=== PATIENT | female | born 1935 | race Hispanic/Latino ===

== ENCOUNTER 2021-03-13 17:04 | Inpatient (IN) | payer OTHER ==
[~2021-03-13] VITALS: Ht 152.4 cm; Wt 57.2 kg
[2021-03-13 19:08] LABS: BASOPHILS # (AUTO) 0.1 (0.0-0.1); BASOPHILS % 0.8 % (0.0-1.0); EOSINOPHILS # (AUTO) 0.3 (0.0-0.4); EOSINOPHILS % 3.4 % (0.0-6.0); LYMPHOCYTES % 13.5 % (18.0-39.1); MEAN CORPUSCULAR HGB CONC 28.1 g/dL (31-35); MEAN CORPUSCULAR VOLUME 85.2 fL (81-99); MONOCYTES % 13.9 % (4.4-11.3); NEUTROPHILS % 67.2 % (38.7-80.0); PLATELET COUNT 262 x10e3/uL (140-360); RED BLOOD COUNT 2.63 x10e6/uL (3.6-5.1); RED CELL DISTRIBUTION WIDTH 21.6 % (11.7-14.4)
[2021-03-13 19:15] LABS: HEMATOCRIT 22.4 % (34.2-44.1); HEMOGLOBIN 6.3 g/dL (12.0-16.0)
[2021-03-13 19:25] LABS: PARTIAL THROMBOPLASTIN TIME 42.6 seconds (23.8-35.5)
[2021-03-13 19:27] LABS: ALBUMIN 3.5 g/dL (3.5-5.0); ALBUMIN/GLOBULIN RATIO 1.2 (0.8-2.0); ANION GAP 16.5 mmol/L (8-16); CALCIUM 7.9 mg/dL (8.4-10.2); CREATININE, SERUM 1.74 mg/dL (0.57-1.11); INR 5.32; PROTHROMBIN TIME 49.4 seconds (11.9-14.5)
[2021-03-13 19:28] LABS: CREATINE KINASE MB 3.9 ng/mL (0-5.0)
[2021-03-13 19:33] LABS: POTASSIUM 5.5 mmol/L (3.5-5.1)
[2021-03-13] MEDS ORDERED: SODIUM CHLORIDE 0.9% 250ML 250 ML IV ONE (20:45)
[2021-03-13] MEDS ORDERED: PHYTONADIONE 10 MG/ML AMP SQ ONE (20:45)
[2021-03-13] MEDS ORDERED: ONDANSETRON HCL INJ 2MG/ML 2ML 2 MG/ML VIAL IV PRN (21:45)
[2021-03-13] MEDS ORDERED: SODIUM CHLORIDE FLUSH 10 ML SYR INJ PRN (21:45)
[2021-03-13 22:07] LABS: CLARITY,URINE CLEAR (CLEAR); COLOR,URINE YELLOW (YELLOW); KETONES,URINE NEGATIVE (NEGATIVE); LEUKOCYTE ESTERASE ,URINE MODERATE (NEGATIVE); NITRITE,URINE NEGATIVE (NEGATIVE); PROTEIN,URINE DIPSTICK 1+ (NEGATIVE); URINE UROBILINOGEN 0.2 mg/dL (0.2 - 1)
[2021-03-13 22:14] LABS: BACTERIA,URINE FEW /HPF; EPITHELIAL CELLS,URINE MODERATE /LPF; WBC,URINE (MAN) 21-50 /HPF (0-5)
[2021-03-13] MEDS: FUROSEMIDE INJ 10 MG/ML 2 ML VIAL IV SCH (22:44)
[2021-03-13 23:16] VITALS: BP 149/64
[2021-03-13] MEDS ORDERED: SODIUM CHLORIDE 0.9% 250ML 250 ML ONE (23:48)
[2021-03-14] VITALS (8 sets, daily range): BP systolic 149–195; BP diastolic 64–94
[2021-03-14] MEDS: FUROSEMIDE INJ 10 MG/ML 2 ML VIAL IV SCH (01:34)
[2021-03-14] MEDS ORDERED: FUROSEMIDE40 MG PO (04:57)
[2021-03-14] MEDS ORDERED: METOPROLOL SUCC50 MG PO (04:57)
[2021-03-14] MEDS ORDERED: POTASSIUM CHLO20 ME1 PO (04:57)
[2021-03-14] MEDS ORDERED: HYDRALAZINE HCL25 MG PO (04:57)
[2021-03-14] MEDS ORDERED: LOSARTAN POTAS100 MG PO (04:57)
[2021-03-14] MEDS ORDERED: ATORVASTATIN CA20 MG PO (04:57)
[2021-03-14] MEDS ORDERED: WARFARIN SODIUM2 MG PO (04:57)
[2021-03-14] MEDS ORDERED: ALENDRONATE SOD70 MG PO (04:57)
[2021-03-14] MEDS ORDERED: TYLENOL325 M2 PO (04:57)
[2021-03-14] MEDS ORDERED: NAC600 MG PO (06:24)
[2021-03-14] MEDS ORDERED: ADVAIR IH (06:24)
[2021-03-14] MEDS: FUROSEMIDE INJ 10 MG/ML 2 ML VIAL IV PRN ×2 (06:38→18:00)
[2021-03-14] MEDS ORDERED: BENZONATATE 100 MG CAP PO PRN (08:45)
[2021-03-14] MEDS ORDERED: METOPROLOL SUCCINATE 50 MG TAB XL PO ONE (08:45)
[2021-03-14] MEDS: ALBUTEROL/IPRATROPIUM 3 ML NEB NEB SCH ×3 (08:45→19:50)
[2021-03-14] MEDS ORDERED: ALBUTEROL/IPRATROPIUM 3 ML NEB NEB PRN (08:45)
[2021-03-14] MEDS ORDERED: METHYLPREDNISOLONE SOD SUCC 40 MG/ML VIAL 1ML IV SCH (09:00)
[2021-03-14] MEDS: CEFTRIAXONE 1 GM in SODIUM CHLORIDE 0.9% 50ML 50 ML IV SCH (09:59)
[2021-03-14] MEDS: BENZONATATE 100 MG CAP PO SCH ×3 (09:59→20:37)
[2021-03-14] MEDS ORDERED: SODIUM CHLORIDE 0.9% 250ML 250 ML ONE (14:00)
[2021-03-14] MEDS: HYDRALAZINE HCL 25 MG TAB PO SCH (14:18)
[2021-03-14] MEDS: METOPROLOL SUCCINATE 50 MG TAB XL PO SCH (17:30)
[2021-03-14 18:40] LABS: BASOPHILS % 0.2 % (0.0-1.0); HEMATOCRIT 28.8 % (34.2-44.1); HEMOGLOBIN 9.1 g/dL (12.0-16.0); LYMPHOCYTES # (AUTO) 0.2 (1.0-3.2); LYMPHOCYTES % 2.3 % (18.0-39.1); MEAN CORPUSCULAR HEMOGLOBIN 26.4 pg (28-32); MEAN CORPUSCULAR HGB CONC 31.6 g/dL (31-35); MEAN CORPUSCULAR VOLUME 83.5 fL (81-99); MONOCYTES % 0.4 % (4.4-11.3); NEUTROPHILS # (AUTO) 9.1 (2.1-6.9); NEUTROPHILS % 95.8 % (38.7-80.0); PLATELET COUNT 234 x10e3/uL (140-360); RED BLOOD COUNT 3.45 x10e6/uL (3.6-5.1); RED CELL DISTRIBUTION WIDTH 19.1 % (11.7-14.4)
[2021-03-14 19:03] LABS: INR 1.28; PROTHROMBIN TIME 16.7 seconds (11.9-14.5)
[2021-03-14 19:04] LABS: PARTIAL THROMBOPLASTIN TIME 28.3 seconds (23.8-35.5)
[2021-03-14 19:15] LABS: ALBUMIN 3.8 g/dL (3.5-5.0); ALBUMIN/GLOBULIN RATIO 1.2 (0.8-2.0); ANION GAP 19.3 mmol/L (8-16); CREATININE, SERUM 1.59 mg/dL (0.57-1.11)
[2021-03-14 19:18] LABS: POTASSIUM 4.3 mmol/L (3.5-5.1)
[2021-03-14 19:35] LABS: FERRITIN 39.88 ng/mL (4.63-204.00)
[2021-03-15] VITALS (8 sets, daily range): BP systolic 132–149; BP diastolic 49–102
[2021-03-15] MEDS: ALBUTEROL/IPRATROPIUM 3 ML NEB NEB SCH ×4 (01:00→19:40)
[2021-03-15 05:37] LABS: BASOPHILS % 0.1 % (0.0-1.0); HEMATOCRIT 28.4 % (34.2-44.1); HEMOGLOBIN 8.8 g/dL (12.0-16.0); LYMPHOCYTES # (AUTO) 0.5 (1.0-3.2); LYMPHOCYTES % 5.8 % (18.0-39.1); MONOCYTES # (AUTO) 0.9 (0.2-0.8); MONOCYTES % 9.2 % (4.4-11.3); NEUTROPHILS # (AUTO) 7.9 (2.1-6.9); NEUTROPHILS % 84.3 % (38.7-80.0); PLATELET COUNT 224 x10e3/uL (140-360); RED BLOOD COUNT 3.38 x10e6/uL (3.6-5.1); RED CELL DISTRIBUTION WIDTH 19.6 % (11.7-14.4)
[2021-03-15 06:14] LABS: INR 1.17; PROTHROMBIN TIME 15.6 seconds (11.9-14.5)
[2021-03-15 06:21] LABS: ANION GAP 20.2 mmol/L (8-16); CALCIUM 7.9 mg/dL (8.4-10.2); CREATININE, SERUM 1.42 mg/dL (0.57-1.11); POTASSIUM 4.2 mmol/L (3.5-5.1)
[2021-03-15] MEDS: BENZONATATE 100 MG CAP PO SCH ×3 (09:00→21:30)
[2021-03-15] MEDS: CYANOCOBALAMIN INJ 1,000 MCG/ML VIAL IM SCH (10:00)
[2021-03-15] MEDS: METHYLPREDNISOLONE SOD SUCC 40 MG/ML VIAL 1ML IV SCH (10:00)
[2021-03-15] MEDS: CEFTRIAXONE 1 GM in SODIUM CHLORIDE 0.9% 50ML 50 ML IV SCH (10:00)
[2021-03-15] MEDS: METOPROLOL SUCCINATE 50 MG TAB XL PO SCH ×2 (10:00→17:31)
[2021-03-15] MEDS ORDERED: PEG (High)/E-LYTE SOLN 4,000 ML BTL PO ONE (10:00)
[2021-03-15] MEDS: ATORVASTATIN 20 MG TAB PO SCH (10:00)
[2021-03-15] MEDS: HYDRALAZINE HCL 25 MG TAB PO SCH ×2 (10:00→17:30)
[2021-03-15] MEDS: IRON SUCROSE 100 MG in SODIUM CHLORIDE 0.9% 100 ML 100 ML IV SCH (11:00)
[2021-03-16] VITALS (7 sets, daily range): BP systolic 120–159; BP diastolic 74–90
[2021-03-16] MEDS: ALBUTEROL/IPRATROPIUM 3 ML NEB NEB SCH ×4 (01:15→21:05)
[2021-03-16] MEDS ORDERED: CITRATE OF MAGNESIA 300ML BOTTLE PO ONE (05:00)
[2021-03-16] MEDS: CYANOCOBALAMIN INJ 1,000 MCG/ML VIAL IM SCH (09:16)
[2021-03-16] MEDS: CEFTRIAXONE 1 GM in SODIUM CHLORIDE 0.9% 50ML 50 ML IV SCH (09:16)
[2021-03-16] MEDS: METHYLPREDNISOLONE SOD SUCC 40 MG/ML VIAL 1ML IV SCH (09:16)
[2021-03-16] MEDS: ATORVASTATIN 20 MG TAB PO SCH (09:17)
[2021-03-16] MEDS: METOPROLOL SUCCINATE 50 MG TAB XL PO SCH ×2 (09:17→17:56)
[2021-03-16] MEDS: BENZONATATE 100 MG CAP PO SCH ×3 (09:17→20:17)
[2021-03-16] MEDS: HYDRALAZINE HCL 25 MG TAB PO SCH ×2 (09:17→17:56)
[2021-03-16] MEDS: IRON SUCROSE 100 MG in SODIUM CHLORIDE 0.9% 100 ML 100 ML IV SCH (11:02)
[2021-03-16] MEDS ORDERED: LIDOCAINE HCL 2% LOCAL INJ 5 ML SDV VIAL INJ ONE (12:54)
[2021-03-16] MEDS ORDERED: PROPOFOL IV EMULSION 10 MG/ML 20 ML VIAL ONE (12:54)
[2021-03-16] MEDS ORDERED: MIDAZOLAM HCL 2 MG/2 ML VIAL ONE (13:21)
[2021-03-16] MEDS ORDERED: HYOSCYAMINE SULFATE 0.5 MG/ML INJ ONE (14:29)
[2021-03-17] VITALS (10 sets, daily range): BP systolic 97–178; BP diastolic 66–100
[2021-03-17] MEDS: ALBUTEROL/IPRATROPIUM 3 ML NEB NEB SCH ×4 (02:53→19:25)
[2021-03-17] MEDS: CYANOCOBALAMIN INJ 1,000 MCG/ML VIAL IM SCH (09:41)
[2021-03-17] MEDS: CEFTRIAXONE 1 GM in SODIUM CHLORIDE 0.9% 50ML 50 ML IV SCH (09:41)
[2021-03-17] MEDS: METHYLPREDNISOLONE SOD SUCC 40 MG/ML VIAL 1ML IV SCH (09:41)
[2021-03-17] MEDS: BENZONATATE 100 MG CAP PO SCH ×3 (09:42→20:56)
[2021-03-17] MEDS: ATORVASTATIN 20 MG TAB PO SCH (09:42)
[2021-03-17] MEDS: METOPROLOL SUCCINATE 50 MG TAB XL PO SCH ×2 (09:42→17:11)
[2021-03-17] MEDS: HYDRALAZINE HCL 25 MG TAB PO SCH ×2 (09:42→17:11)
[2021-03-17] MEDS ORDERED: SODIUM CHLORIDE 0.9% 50ML 50 ML ONE (10:23)
[2021-03-17] MEDS: IRON SUCROSE 100 MG in SODIUM CHLORIDE 0.9% 100 ML 100 ML IV SCH (10:53)
[2021-03-17] MEDS: APIXAB 2.5 MG TABLET PO SCH (17:11)
[2021-03-18] VITALS (9 sets, daily range): BP systolic 117–189; BP diastolic 63–122
[2021-03-18] MEDS: ALBUTEROL/IPRATROPIUM 3 ML NEB NEB SCH ×3 (01:00→19:57)
[2021-03-18] MEDS ORDERED: PANTOPRAZOLE SODIUM 40 MG SUSPDR.PKT PO SCH (07:30)
[2021-03-18] MEDS: METHYLPREDNISOLONE SOD SUCC 40 MG/ML VIAL 1ML IV SCH (07:30)
[2021-03-18] MEDS: HYDRALAZINE HCL 25 MG TAB PO SCH ×2 (09:00→17:00)
[2021-03-18] MEDS: METOPROLOL SUCCINATE 50 MG TAB XL PO SCH ×2 (09:00→17:00)
[2021-03-18] MEDS: APIXAB 2.5 MG TABLET PO SCH ×2 (09:00→17:00)
[2021-03-18] MEDS: ATORVASTATIN 20 MG TAB PO SCH (09:00)
[2021-03-18] MEDS: CEFTRIAXONE 1 GM in SODIUM CHLORIDE 0.9% 50ML 50 ML IV SCH (09:00)
[2021-03-18] MEDS: BENZONATATE 100 MG CAP PO SCH ×3 (09:00→21:28)
[2021-03-18] MEDS: HYDRALAZINE HCL 20 MG/ML VIAL IV PRN (09:52)
[2021-03-18 09:56] LABS: BASOPHILS % 0.1 % (0.0-1.0); HEMATOCRIT 28.8 % (34.2-44.1); HEMOGLOBIN 8.8 g/dL (12.0-16.0); LYMPHOCYTES # (AUTO) 0.7 (1.0-3.2); LYMPHOCYTES % 4.8 % (18.0-39.1); MEAN CORPUSCULAR HEMOGLOBIN 26.4 pg (28-32); MEAN CORPUSCULAR HGB CONC 30.6 g/dL (31-35); MEAN CORPUSCULAR VOLUME 86.5 fL (81-99); MONOCYTES # (AUTO) 1.6 (0.2-0.8); MONOCYTES % 10.8 % (4.4-11.3); NEUTROPHILS # (AUTO) 11.4 (2.1-6.9); NEUTROPHILS % 79.2 % (38.7-80.0); PLATELET COUNT 288 x10e3/uL (140-360); RED BLOOD COUNT 3.33 x10e6/uL (3.6-5.1); RED CELL DISTRIBUTION WIDTH 21.8 % (11.7-14.4)
[2021-03-18 10:00] LABS: ANION GAP 14.7 mmol/L (8-16); CALCIUM 7.6 mg/dL (8.4-10.2); CREATININE, SERUM 1.22 mg/dL (0.57-1.11); POTASSIUM 3.7 mmol/L (3.5-5.1)
[2021-03-18] MEDS: IRON SUCROSE 100 MG in SODIUM CHLORIDE 0.9% 100 ML 100 ML IV SCH (10:00)
[2021-03-19 00:37] VITALS: BP 159/83
[2021-03-19] MEDS: ALBUTEROL/IPRATROPIUM 3 ML NEB NEB SCH ×3 (01:00→13:27)
[2021-03-19] MEDS: HYDRALAZINE HCL 20 MG/ML VIAL IV PRN (04:23)
[2021-03-19 04:32] VITALS: BP 168/99
[2021-03-19 04:54] LABS: BASOPHILS % 0.2 % (0.0-1.0); EOSINOPHILS % 0.1 % (0.0-6.0); HEMATOCRIT 29.1 % (34.2-44.1); HEMOGLOBIN 8.8 g/dL (12.0-16.0); LYMPHOCYTES # (AUTO) 0.6 (1.0-3.2); LYMPHOCYTES % 4.4 % (18.0-39.1); MEAN CORPUSCULAR HEMOGLOBIN 26.7 pg (28-32); MEAN CORPUSCULAR HGB CONC 30.2 g/dL (31-35); MEAN CORPUSCULAR VOLUME 88.2 fL (81-99); MONOCYTES # (AUTO) 1.3 (0.2-0.8); MONOCYTES % 9.3 % (4.4-11.3); NEUTROPHILS # (AUTO) 11.2 (2.1-6.9); NEUTROPHILS % 80.6 % (38.7-80.0); PLATELET COUNT 288 x10e3/uL (140-360); RED CELL DISTRIBUTION WIDTH 22.4 % (11.7-14.4)
[2021-03-19 05:22] LABS: ANION GAP 13.9 mmol/L (8-16); CALCIUM 7.8 mg/dL (8.4-10.2); CREATININE, SERUM 1.49 mg/dL (0.57-1.11); POTASSIUM 4.9 mmol/L (3.5-5.1)
[2021-03-19 06:22] LABS: ANISOCYTOSIS MODERATE; LYMPHOCYTES % (MANUAL) 3 % (19-48); MONOCYTES % (MANUAL) 6 % (3.4-9.0); NEUTROPHILS % (MANUAL) 91 % (40-74); NUCLEATED RED BLOOD CELLS 1; PLATELET ESTIMATE ADEQUATE; PLATELET MORPHOLOGY COMMENT NORMAL
[2021-03-19 06:23] LABS: POLYCHROMASIA FEW
[2021-03-19 06:24] LABS: OVALOCYTES FEW
[2021-03-19 06:25] LABS: ELLIPTOCYTE, RBC SLIGHT
[2021-03-19 06:26] LABS: RBC MORPHOLOGY COMMENT ABNORMAL
[2021-03-19] MEDS ORDERED: PANTOPRAZOLE SOD 40 MG TABEC PO SCH (07:30)
[2021-03-19] MEDS: METHYLPREDNISOLONE SOD SUCC 40 MG/ML VIAL 1ML IV SCH (07:57)
[2021-03-19 08:26] VITALS: BP 152/94
[2021-03-19] MEDS: BENZONATATE 100 MG CAP PO SCH (09:22)
[2021-03-19] MEDS: ATORVASTATIN 20 MG TAB PO SCH (09:22)
[2021-03-19] MEDS: CEFTRIAXONE 1 GM in SODIUM CHLORIDE 0.9% 50ML 50 ML IV SCH (09:22)
[2021-03-19] MEDS: APIXAB 2.5 MG TABLET PO SCH (09:22)
[2021-03-19] MEDS: HYDRALAZINE HCL 25 MG TAB PO SCH (09:23)
[2021-03-19] MEDS: METOPROLOL SUCCINATE 50 MG TAB XL PO SCH (09:23)
[2021-03-19] MEDS ORDERED: ELIQUIS2.5 MG PO (09:57)
[2021-03-19] MEDS ORDERED: TESSALON PERLE100 MG PO (09:58)
[2021-03-19] MEDS ORDERED: CARAFATE1 GM PO (09:59)
[2021-03-19] MEDS ORDERED: POTASSIUM CHLO10 ME1 PO (10:00)
[2021-03-19] MEDS ORDERED: OMEPRAZOLE40 MG PO (10:00)
[2021-03-19] MEDS ORDERED: ONDANSETRON HCL 4 MG ORAL DISINTEGRATING TAB PO PRN (10:15)
[2021-03-19 11:33] VITALS: BP 164/82
== END 2021-03-19 16:15 | disposition home or self-care (01) | DRG 377 ==
LOC: ER 17:40 → ERHOLD 21:40 → MED/SURG 23:10 → MED/SURG2 03-14 11:44
PROVIDERS: ADMIT Internal Medicine; ATTEND Internal Medicine
PROC: 30233K1 Transfusion of Nonautologous Frozen Plasma into Peripheral Vein, Percutaneous Approach (ICD-10-PCS; 2021-03-13)
PROC: 30233N1 Transfusion of Nonautologous Red Blood Cells into Peripheral Vein, Percutaneous Approach (ICD-10-PCS; 2021-03-14)
PROC: 0DB78ZX Excision of Stomach, Pylorus, Via Natural or Artificial Opening Endoscopic, Diagnostic (ICD-10-PCS; principal; 2021-03-16 15:00)
PROC: 0DJD8ZZ Inspection of Lower Intestinal Tract, Via Natural or Artificial Opening Endoscopic (ICD-10-PCS; 2021-03-16 15:00)
DX: K57.91 Diverticulosis of intestine, part unspecified, without perforation or abscess with bleeding (principal); K20.91 Esophagitis, unspecified with bleeding; N17.9 Acute kidney failure, unspecified; D62 Acute posthemorrhagic anemia; J84.9 Interstitial pulmonary disease, unspecified; J44.1 Chronic obstructive pulmonary disease with (acute) exacerbation; D68.32 Hemorrhagic disorder due to extrinsic circulating anticoagulants; I13.0 Hypertensive heart and chronic kidney disease with heart failure and stage 1 through stage 4 chronic kidney disease, or unspecified chronic kidney disease; T45.515A Adverse effect of anticoagulants, initial encounter; Z99.81 Dependence on supplemental oxygen; K44.9 Diaphragmatic hernia without obstruction or gangrene; K29.70 Gastritis, unspecified, without bleeding; K20.90 Esophagitis, unspecified without bleeding; J98.4 Other disorders of lung; E86.0 Dehydration; E87.5 Hyperkalemia; R09.02 Hypoxemia; I50.9 Heart failure, unspecified; N18.9 Chronic kidney disease, unspecified
CPT/HCPCS: 36415; 43239; 45378; 71045; 71250; 74176; 80048; 80053; 81001; 82103; 82270; 82550; 82553; 82607; 82728; 82746; 83540; 84466; 84484; 85025; 85045; 85610; 85730; 86200; 86431; 86850; 86900; 86920; 88305; 88312; 93005; 94640; 99285; J0360; J0696; J1756; J1940; J1980; J2001; J2250; J2920; J3420; J3430; J7050; P9016; P9017; U0002

== ENCOUNTER 2021-05-29 18:56 | Inpatient (IN) | payer OTHER ==
[~2021-05-29] VITALS: Ht 152.4 cm; Wt 57.2 kg
[~2021-05-29 18:56] MED LIST: ADVAIR IH; ALENDRONATE SOD70 MG PO; ATORVASTATIN CA20 MG PO; CARAFATE1 GM PO; ELIQUIS2.5 MG PO; FUROSEMIDE40 MG PO; HYDRALAZINE HCL25 MG PO; LOSARTAN POTAS100 MG PO; METOPROLOL SUCC50 MG PO; NAC600 MG PO; OMEPRAZOLE40 MG PO; POTASSIUM CHLO10 ME1 PO; POTASSIUM CHLO20 ME1 PO; TESSALON PERLE100 MG PO; TYLENOL325 M2 PO; WARFARIN SODIUM2 MG PO
[2021-05-29 20:09] LABS: BASOPHILS % 0.1 % (0.0-1.0); EOSINOPHILS # (AUTO) 0.2 (0.0-0.4); EOSINOPHILS % 1.1 % (0.0-6.0); HEMATOCRIT 34.7 % (34.2-44.1); HEMOGLOBIN 10.3 g/dL (12.0-16.0); LYMPHOCYTES # (AUTO) 0.6 (1.0-3.2); MEAN CORPUSCULAR HGB CONC 29.7 g/dL (31-35); MEAN CORPUSCULAR VOLUME 91.1 fL (81-99); MONOCYTES # (AUTO) 1.4 (0.2-0.8); MONOCYTES % 9.7 % (4.4-11.3); NEUTROPHILS # (AUTO) 11.9 (2.1-6.9); NEUTROPHILS % 84.5 % (38.7-80.0); PLATELET COUNT 255 x10e3/uL (140-360); RED BLOOD COUNT 3.81 x10e6/uL (3.6-5.1); RED CELL DISTRIBUTION WIDTH 17.9 % (11.7-14.4)
[2021-05-29 20:19] LABS: INR 1.35; PROTHROMBIN TIME 16.9 seconds (11.9-14.5)
[2021-05-29 20:20] LABS: PARTIAL THROMBOPLASTIN TIME 35.4 seconds (23.8-35.5)
[2021-05-29 20:29] LABS: ALBUMIN 3.3 g/dL (3.5-5.0); ALBUMIN/GLOBULIN RATIO 1.1 (0.8-2.0); ANION GAP 16.2 mmol/L (8-16); CALCIUM 8.7 mg/dL (8.4-10.2); CREATININE, SERUM 1.27 mg/dL (0.57-1.11); POTASSIUM 4.2 mmol/L (3.5-5.1)
[2021-05-29] MEDS ORDERED: SODIUM CHLORIDE FLUSH 10 ML SYR INJ PRN (22:00)
[2021-05-29] MEDS ORDERED: ALBUTEROL SULF 0.083% NEB SOLN 3 ML NEB NEB SCH (22:00)
[2021-05-29 22:14] LABS: CREATINE KINASE MB 2.7 ng/mL (0-5.0)
[2021-05-29] MEDS ORDERED: HYDRALAZINE HCL 25 MG TAB PO PRN (22:45)
[2021-05-29] MEDS ORDERED: ALBUTEROL/IPRATROPIUM 3 ML NEB NEB PRN (22:45)
[2021-05-29] MEDS: CEFTRIAXONE 1 GM in SODIUM CHLORIDE 0.9% 50ML 50 ML IV SCH ×2 (23:00→23:10)
[2021-05-29] MEDS: METHYLPREDNISOLONE SOD SUCC 40 MG/ML VIAL 1ML IV SCH (23:10)
[2021-05-30] MEDS ORDERED: IPRATROPIUM BROMIDE 0.02% 2.5 ML NEB NEB SCH
[2021-05-30] MEDS: ALBUTEROL/IPRATROPIUM 3 ML NEB NEB SCH ×5 (00:35→19:30)
[2021-05-30] MEDS: METOPROLOL SUCCINATE 50 MG TAB XL PO SCH ×3 (01:26→17:48)
[2021-05-30] MEDS ORDERED: BENZONATATE 100 MG CAP ONE (01:59)
[2021-05-30] MEDS: BENZONATATE 100 MG CAP PO SCH ×6 (02:36→21:58)
[2021-05-30 05:58] LABS: BASOPHILS % 0.2 % (0.0-1.0); EOSINOPHILS # (AUTO) 0.1 (0.0-0.4); EOSINOPHILS % 0.4 % (0.0-6.0); HEMATOCRIT 35.4 % (34.2-44.1); HEMOGLOBIN 10.7 g/dL (12.0-16.0); LYMPHOCYTES # (AUTO) 0.3 (1.0-3.2); LYMPHOCYTES % 1.6 % (18.0-39.1); MEAN CORPUSCULAR HEMOGLOBIN 27.4 pg (28-32); MEAN CORPUSCULAR HGB CONC 30.2 g/dL (31-35); MEAN CORPUSCULAR VOLUME 90.8 fL (81-99); MONOCYTES # (AUTO) 1.3 (0.2-0.8); MONOCYTES % 7.3 % (4.4-11.3); NEUTROPHILS # (AUTO) 15.6 (2.1-6.9); NEUTROPHILS % 89.8 % (38.7-80.0); PLATELET COUNT 238 x10e3/uL (140-360); RED CELL DISTRIBUTION WIDTH 17.6 % (11.7-14.4)
[2021-05-30 06:28] LABS: ALBUMIN 3.1 g/dL (3.5-5.0); ALBUMIN/GLOBULIN RATIO 0.9 (0.8-2.0); ANION GAP 16.2 mmol/L (8-16); CALCIUM 8.6 mg/dL (8.4-10.2); CREATININE, SERUM 1.03 mg/dL (0.57-1.11); POTASSIUM 4.2 mmol/L (3.5-5.1)
[2021-05-30 06:35] LABS: CREATINE KINASE MB 2.6 ng/mL (0-5.0)
[2021-05-30] MEDS: FUROSEMIDE INJ 10 MG/ML 4 ML VIAL IV SCH (08:21)
[2021-05-30] MEDS: APIXAB 2.5 MG TABLET PO SCH ×2 (08:21→17:48)
[2021-05-30] MEDS: POTASSIUM CHLORIDE 10MEQ EA PO SCH (08:21)
[2021-05-30] MEDS: HYDRALAZINE HCL 25 MG TAB PO SCH ×3 (08:21→21:58)
[2021-05-30] MEDS: METHYLPREDNISOLONE SOD SUCC 40 MG/ML VIAL 1ML IV SCH ×2 (08:21→21:57)
[2021-05-30] MEDS: PANTOPRAZOLE SOD 40 MG TABEC PO SCH (08:22)
[2021-05-30] MEDS ORDERED: N ACETYL CYSTEINE PO SCH (09:00)
[2021-05-30] MEDS: HOME MEDICATION--PATIENTS OWN PO SCH ×2 (09:00→17:00)
[2021-05-30] MEDS ORDERED: VITAMIN C PO SCH (09:00)
[2021-05-30] MEDS ORDERED: DEXTROSE 50% SYRINGE 50 ML IV PRN (09:45)
[2021-05-30 10:44] LABS: ABG PCO2 35 mmHg (35-45); ABG PH 7.47 (7.35-7.45)
[2021-05-30 10:45] LABS: ABG HCO3 26 mmol/L (22-26); ABG PO2 54 mmHg (80-105); ABG TCO2 27
[2021-05-30] MEDS ORDERED: SODIUM CHLORIDE 0.9% 50ML 50 ML ONE (11:21)
[2021-05-30] MEDS ORDERED: IOPAMIDOL 370 MG/ML 200 ML INFUS..BTL INJ ONE (11:21)
[2021-05-30] MEDS: INSULIN LISPRO 100 UNIT/1 ML 3ML VIAL SQ SCH ×3 (11:26→20:30)
[2021-05-30 12:22] VITALS: BP 137/116
[2021-05-30 14:45] LABS: CREATINE KINASE MB 2.3 ng/mL (0-5.0)
[2021-05-30 15:14] VITALS: BP 127/79
[2021-05-30 15:59] VITALS: BP 127/79
[2021-05-30 20:00] VITALS: BP 124/63
[2021-05-30 21:00] VITALS: BP 124/63
[2021-05-30] MEDS: ATORVASTATIN 20 MG TAB PO SCH (21:57)
[2021-05-30] MEDS: CEFTRIAXONE 1 GM in SODIUM CHLORIDE 0.9% 50ML 50 ML IV SCH (23:30)
[2021-05-31] VITALS (8 sets, daily range): BP systolic 119–154; BP diastolic 75–99
[2021-05-31] MEDS: BENZONATATE 100 MG CAP PO SCH ×6 (03:04→22:00)
[2021-05-31 04:51] LABS: BASOPHILS % 0.2 % (0.0-1.0); HEMATOCRIT 31.1 % (34.2-44.1); HEMOGLOBIN 9.4 g/dL (12.0-16.0); LYMPHOCYTES # (AUTO) 0.2 (1.0-3.2); LYMPHOCYTES % 1.2 % (18.0-39.1); MEAN CORPUSCULAR HEMOGLOBIN 27.4 pg (28-32); MEAN CORPUSCULAR HGB CONC 30.2 g/dL (31-35); MEAN CORPUSCULAR VOLUME 90.7 fL (81-99); MONOCYTES # (AUTO) 0.4 (0.2-0.8); MONOCYTES % 2.6 % (4.4-11.3); NEUTROPHILS # (AUTO) 16.3 (2.1-6.9); PLATELET COUNT 211 x10e3/uL (140-360); RED BLOOD COUNT 3.43 x10e6/uL (3.6-5.1); RED CELL DISTRIBUTION WIDTH 17.7 % (11.7-14.4)
[2021-05-31 05:33] LABS: ALBUMIN 2.6 g/dL (3.5-5.0); ALBUMIN/GLOBULIN RATIO 0.9 (0.8-2.0); CALCIUM 7.9 mg/dL (8.4-10.2); CREATININE, SERUM 1.66 mg/dL (0.57-1.11)
[2021-05-31] MEDS: HYDRALAZINE HCL 25 MG TAB PO SCH ×3 (05:53→22:00)
[2021-05-31] MEDS: ALBUTEROL/IPRATROPIUM 3 ML NEB NEB SCH ×3 (07:00→20:40)
[2021-05-31] MEDS: FUROSEMIDE INJ 10 MG/ML 4 ML VIAL IV SCH (09:23)
[2021-05-31] MEDS: METHYLPREDNISOLONE SOD SUCC 40 MG/ML VIAL 1ML IV SCH ×2 (09:23→21:55)
[2021-05-31] MEDS: APIXAB 2.5 MG TABLET PO SCH ×2 (09:23→16:01)
[2021-05-31] MEDS: INSULIN LISPRO 100 UNIT/1 ML 3ML VIAL SQ SCH ×4 (09:23→21:54)
[2021-05-31] MEDS: HOME MEDICATION--PATIENTS OWN PO SCH ×2 (09:24→16:01)
[2021-05-31] MEDS: PANTOPRAZOLE SOD 40 MG TABEC PO SCH (09:24)
[2021-05-31] MEDS: POTASSIUM CHLORIDE 10MEQ EA PO SCH (09:24)
[2021-05-31] MEDS: METOPROLOL SUCCINATE 50 MG TAB XL PO SCH ×2 (09:25→16:02)
[2021-05-31] MEDS: SENNA-S TABLET PO SCH (16:01)
[2021-05-31] MEDS: ATORVASTATIN 20 MG TAB PO SCH (21:55)
[2021-05-31] MEDS: CEFTRIAXONE 1 GM in SODIUM CHLORIDE 0.9% 50ML 50 ML IV SCH (23:30)
[2021-06-01] VITALS (8 sets, daily range): BP systolic 100–146; BP diastolic 64–86
[2021-06-01] MEDS: ALBUTEROL/IPRATROPIUM 3 ML NEB NEB SCH ×4 (01:00→19:15)
[2021-06-01] MEDS: BENZONATATE 100 MG CAP PO SCH ×2 (02:07→06:05)
[2021-06-01] MEDS: HYDRALAZINE HCL 25 MG TAB PO SCH ×3 (06:05→21:32)
[2021-06-01] MEDS: FUROSEMIDE INJ 10 MG/ML 4 ML VIAL IV SCH (09:29)
[2021-06-01] MEDS: APIXAB 2.5 MG TABLET PO SCH ×2 (09:30→18:40)
[2021-06-01] MEDS: METHYLPREDNISOLONE SOD SUCC 40 MG/ML VIAL 1ML IV SCH (09:30)
[2021-06-01] MEDS: HOME MEDICATION--PATIENTS OWN PO SCH ×2 (09:30→18:40)
[2021-06-01] MEDS: POTASSIUM CHLORIDE 10MEQ EA PO SCH (09:31)
[2021-06-01] MEDS: PANTOPRAZOLE SOD 40 MG TABEC PO SCH (09:31)
[2021-06-01] MEDS: SENNA-S TABLET PO SCH ×2 (09:33→18:40)
[2021-06-01] MEDS: METOPROLOL SUCCINATE 50 MG TAB XL PO SCH ×2 (09:34→18:41)
[2021-06-01] MEDS ORDERED: GUAIFENESIN/CODEINE 10 ML CUP PO PRN (10:15)
[2021-06-01] MEDS: INSULIN LISPRO 100 UNIT/1 ML 3ML VIAL SQ SCH ×4 (11:30→21:33)
[2021-06-01] MEDS: ATORVASTATIN 20 MG TAB PO SCH (21:32)
[2021-06-01] MEDS: CEFTRIAXONE 1 GM in SODIUM CHLORIDE 0.9% 50ML 50 ML IV SCH (23:30)
[2021-06-02] VITALS (7 sets, daily range): BP systolic 138–161; BP diastolic 70–115
[2021-06-02] MEDS: ALBUTEROL/IPRATROPIUM 3 ML NEB NEB SCH ×4 (01:00→20:25)
[2021-06-02] MEDS: HYDRALAZINE HCL 25 MG TAB PO SCH ×3 (05:02→21:28)
[2021-06-02 06:10] LABS: BASOPHILS % 0.1 % (0.0-1.0); HEMATOCRIT 31.8 % (34.2-44.1); HEMOGLOBIN 9.6 g/dL (12.0-16.0); LYMPHOCYTES # (AUTO) 0.5 (1.0-3.2); LYMPHOCYTES % 3.5 % (18.0-39.1); MEAN CORPUSCULAR HEMOGLOBIN 27.4 pg (28-32); MEAN CORPUSCULAR HGB CONC 30.2 g/dL (31-35); MEAN CORPUSCULAR VOLUME 90.9 fL (81-99); MONOCYTES # (AUTO) 1.3 (0.2-0.8); MONOCYTES % 9.3 % (4.4-11.3); NEUTROPHILS # (AUTO) 11.9 (2.1-6.9); NEUTROPHILS % 86.2 % (38.7-80.0); PLATELET COUNT 263 x10e3/uL (140-360)
[2021-06-02 06:34] LABS: ANION GAP 15.9 mmol/L (8-16); CALCIUM 7.8 mg/dL (8.4-10.2); CREATININE, SERUM 1.61 mg/dL (0.57-1.11); POTASSIUM 4.9 mmol/L (3.5-5.1)
[2021-06-02] MEDS: INSULIN LISPRO 100 UNIT/1 ML 3ML VIAL SQ SCH ×4 (07:30→21:00)
[2021-06-02] MEDS: HOME MEDICATION--PATIENTS OWN PO SCH ×2 (09:00→16:34)
[2021-06-02] MEDS: SENNA-S TABLET PO SCH ×2 (09:00→16:21)
[2021-06-02] MEDS: APIXAB 2.5 MG TABLET PO SCH ×2 (09:14→16:34)
[2021-06-02] MEDS: PANTOPRAZOLE SOD 40 MG TABEC PO SCH (09:14)
[2021-06-02] MEDS: METOPROLOL SUCCINATE 50 MG TAB XL PO SCH ×2 (09:15→16:35)
[2021-06-02] MEDS: METHYLPREDNISOLONE SOD SUCC 40 MG/ML VIAL 1ML IV SCH (09:16)
[2021-06-02] MEDS: DOXYCYCLINE HYCLATE TABLET 100 MG TAB PO SCH ×2 (11:09→16:35)
[2021-06-02] MEDS: NYSTATIN SUSPENSION 5 ML UDC PO SCH ×3 (11:11→23:30)
[2021-06-02] MEDS: CEFEPIME 1 GM in SODIUM CHLORIDE 0.9% 50ML 50 ML IV SCH (21:28)
[2021-06-02] MEDS: ATORVASTATIN 20 MG TAB PO SCH (21:28)
[2021-06-03] VITALS (8 sets, daily range): BP systolic 108–156; BP diastolic 53–100
[2021-06-03] MEDS: ALBUTEROL/IPRATROPIUM 3 ML NEB NEB SCH ×4 (01:30→21:14)
[2021-06-03] MEDS: BENZONATATE 100 MG CAP PO PRN ×2 (04:38→22:30)
[2021-06-03] MEDS: HYDRALAZINE HCL 25 MG TAB PO SCH ×3 (05:59→22:27)
[2021-06-03] MEDS: NYSTATIN SUSPENSION 5 ML UDC PO SCH ×3 (05:59→16:38)
[2021-06-03] MEDS: METHYLPREDNISOLONE SOD SUCC 40 MG/ML VIAL 1ML IV SCH (07:30)
[2021-06-03] MEDS: INSULIN LISPRO 100 UNIT/1 ML 3ML VIAL SQ SCH ×4 (07:30→21:00)
[2021-06-03] MEDS: DOXYCYCLINE HYCLATE TABLET 100 MG TAB PO SCH ×2 (09:00→16:37)
[2021-06-03] MEDS: CEFEPIME 1 GM in SODIUM CHLORIDE 0.9% 50ML 50 ML IV SCH ×2 (09:00→22:26)
[2021-06-03] MEDS: METOPROLOL SUCCINATE 50 MG TAB XL PO SCH ×2 (09:00→16:37)
[2021-06-03] MEDS: SENNA-S TABLET PO SCH (09:00)
[2021-06-03] MEDS: PANTOPRAZOLE SOD 40 MG TABEC PO SCH (09:00)
[2021-06-03] MEDS: HOME MEDICATION--PATIENTS OWN PO SCH ×2 (09:00→12:10)
[2021-06-03] MEDS: APIXAB 2.5 MG TABLET PO SCH ×2 (09:00→16:37)
[2021-06-03] MEDS: ATORVASTATIN 20 MG TAB PO SCH (22:26)
[2021-06-04] VITALS (7 sets, daily range): BP systolic 137–165; BP diastolic 70–112
[2021-06-04] MEDS: NYSTATIN SUSPENSION 5 ML UDC PO SCH ×4 (00:06→18:47)
[2021-06-04] MEDS: ALBUTEROL/IPRATROPIUM 3 ML NEB NEB SCH ×4 (01:06→19:31)
[2021-06-04 05:40] LABS: BASOPHILS % 0.2 % (0.0-1.0); HEMATOCRIT 30.9 % (34.2-44.1); HEMOGLOBIN 9.3 g/dL (12.0-16.0); LYMPHOCYTES # (AUTO) 0.3 (1.0-3.2); LYMPHOCYTES % 2.8 % (18.0-39.1); MEAN CORPUSCULAR HEMOGLOBIN 27.1 pg (28-32); MEAN CORPUSCULAR HGB CONC 30.1 g/dL (31-35); MEAN CORPUSCULAR VOLUME 90.1 fL (81-99); MONOCYTES # (AUTO) 0.8 (0.2-0.8); NEUTROPHILS # (AUTO) 9.7 (2.1-6.9); NEUTROPHILS % 87.3 % (38.7-80.0); PLATELET COUNT 217 x10e3/uL (140-360); RED BLOOD COUNT 3.43 x10e6/uL (3.6-5.1); RED CELL DISTRIBUTION WIDTH 17.5 % (11.7-14.4)
[2021-06-04] MEDS: HYDRALAZINE HCL 25 MG TAB PO SCH ×3 (05:54→21:32)
[2021-06-04] MEDS: BENZONATATE 100 MG CAP PO PRN ×3 (05:54→19:18)
[2021-06-04 06:21] LABS: ANION GAP 14.8 mmol/L (8-16); CALCIUM 8.3 mg/dL (8.4-10.2); CREATININE, SERUM 1.53 mg/dL (0.57-1.11); POTASSIUM 4.8 mmol/L (3.5-5.1)
[2021-06-04] MEDS: INSULIN LISPRO 100 UNIT/1 ML 3ML VIAL SQ SCH ×4 (07:30→21:00)
[2021-06-04] MEDS: HOME MEDICATION--PATIENTS OWN PO SCH ×2 (09:00→17:00)
[2021-06-04] MEDS: METOPROLOL SUCCINATE 50 MG TAB XL PO SCH ×2 (09:00→18:48)
[2021-06-04] MEDS: PANTOPRAZOLE SOD 40 MG TABEC PO SCH (09:37)
[2021-06-04] MEDS: CEFEPIME 1 GM in SODIUM CHLORIDE 0.9% 50ML 50 ML IV SCH ×2 (09:38→21:31)
[2021-06-04] MEDS: APIXAB 2.5 MG TABLET PO SCH ×2 (09:38→18:47)
[2021-06-04] MEDS: DOXYCYCLINE HYCLATE TABLET 100 MG TAB PO SCH ×2 (09:38→18:47)
[2021-06-04] MEDS ORDERED: NIFEDIPINE CR 30 MG TAB PO NR (11:45)
[2021-06-04] MEDS ORDERED: GUAIFENESIN/CODEINE 5 ML LIQD PO PRN (20:15)
[2021-06-04] MEDS: ATORVASTATIN 20 MG TAB PO SCH (21:31)
[2021-06-05] VITALS (8 sets, daily range): BP systolic 121–161; BP diastolic 66–90
[2021-06-05] MEDS: NYSTATIN SUSPENSION 5 ML UDC PO SCH ×4 (00:20→17:46)
[2021-06-05] MEDS: ALBUTEROL/IPRATROPIUM 3 ML NEB NEB SCH ×4 (01:00→19:40)
[2021-06-05] MEDS: BENZONATATE 100 MG CAP PO PRN (05:00)
[2021-06-05] MEDS: HYDRALAZINE HCL 25 MG TAB PO SCH ×3 (05:39→22:04)
[2021-06-05] MEDS: INSULIN LISPRO 100 UNIT/1 ML 3ML VIAL SQ SCH ×4 (07:30→22:03)
[2021-06-05] MEDS: HOME MEDICATION--PATIENTS OWN PO SCH ×2 (09:00→17:00)
[2021-06-05] MEDS: CEFEPIME 1 GM in SODIUM CHLORIDE 0.9% 50ML 50 ML IV SCH ×2 (09:19→22:03)
[2021-06-05] MEDS: APIXAB 2.5 MG TABLET PO SCH ×2 (09:21→17:47)
[2021-06-05] MEDS: METHYLPREDNISOLONE SOD SUCC 40 MG/ML VIAL 1ML IV SCH (09:21)
[2021-06-05] MEDS: PANTOPRAZOLE SOD 40 MG TABEC PO SCH (09:22)
[2021-06-05] MEDS: NIFEDIPINE CR 30 MG TAB PO SCH (09:23)
[2021-06-05] MEDS: DOXYCYCLINE HYCLATE TABLET 100 MG TAB PO SCH ×2 (09:23→17:46)
[2021-06-05] MEDS: METOPROLOL SUCCINATE 50 MG TAB XL PO SCH ×2 (09:23→17:46)
[2021-06-05] MEDS ORDERED: IPRATROPIU0.2 MG/1 M INH (18:54)
[2021-06-05] MEDS ORDERED: AMLODIPINE BESYL5 MG PO (18:54)
[2021-06-05] MEDS: ATORVASTATIN 20 MG TAB PO SCH (22:03)
[2021-06-06] VITALS (8 sets, daily range): BP systolic 122–159; BP diastolic 67–95
[2021-06-06] MEDS: ALBUTEROL/IPRATROPIUM 3 ML NEB NEB SCH ×4 (00:35→20:10)
[2021-06-06] MEDS: HYDRALAZINE HCL 25 MG TAB PO SCH ×3 (06:24→21:44)
[2021-06-06] MEDS: NYSTATIN SUSPENSION 5 ML UDC PO SCH ×5 (06:24→22:57)
[2021-06-06] MEDS: METHYLPREDNISOLONE SOD SUCC 40 MG/ML VIAL 1ML IV SCH (06:24)
[2021-06-06] MEDS: INSULIN LISPRO 100 UNIT/1 ML 3ML VIAL SQ SCH ×4 (07:30→20:18)
[2021-06-06] MEDS: CEFEPIME 1 GM in SODIUM CHLORIDE 0.9% 50ML 50 ML IV SCH ×2 (08:38→21:43)
[2021-06-06] MEDS: PANTOPRAZOLE SOD 40 MG TABEC PO SCH (08:39)
[2021-06-06] MEDS: METOPROLOL SUCCINATE 50 MG TAB XL PO SCH ×2 (08:39→16:19)
[2021-06-06] MEDS: NIFEDIPINE CR 30 MG TAB PO SCH (08:39)
[2021-06-06] MEDS: DOXYCYCLINE HYCLATE TABLET 100 MG TAB PO SCH ×2 (08:40→16:19)
[2021-06-06] MEDS: HOME MEDICATION--PATIENTS OWN PO SCH ×2 (08:43→16:18)
[2021-06-06] MEDS: ATORVASTATIN 20 MG TAB PO SCH (21:43)
[2021-06-07] VITALS (8 sets, daily range): BP systolic 131–174; BP diastolic 72–100
[2021-06-07] MEDS: ALBUTEROL/IPRATROPIUM 3 ML NEB NEB SCH ×4 (01:10→20:33)
[2021-06-07] MEDS: NYSTATIN SUSPENSION 5 ML UDC PO SCH ×3 (05:26→16:49)
[2021-06-07] MEDS: METHYLPREDNISOLONE SOD SUCC 40 MG/ML VIAL 1ML IV SCH (05:26)
[2021-06-07] MEDS: HYDRALAZINE HCL 25 MG TAB PO SCH ×3 (05:26→20:45)
[2021-06-07 05:48] LABS: BASOPHILS # (AUTO) 0.1 (0.0-0.1); BASOPHILS % 0.5 % (0.0-1.0); HEMATOCRIT 33.4 % (34.2-44.1); HEMOGLOBIN 10.4 g/dL (12.0-16.0); LYMPHOCYTES # (AUTO) 0.6 (1.0-3.2); LYMPHOCYTES % 3.8 % (18.0-39.1); MEAN CORPUSCULAR HEMOGLOBIN 27.9 pg (28-32); MEAN CORPUSCULAR HGB CONC 31.1 g/dL (31-35); MEAN CORPUSCULAR VOLUME 89.5 fL (81-99); NEUTROPHILS # (AUTO) 12.2 (2.1-6.9); PLATELET COUNT 267 x10e3/uL (140-360); RED BLOOD COUNT 3.73 x10e6/uL (3.6-5.1); RED CELL DISTRIBUTION WIDTH 18.4 % (11.7-14.4)
[2021-06-07 06:21] LABS: ALBUMIN 3.3 g/dL (3.5-5.0); ALBUMIN/GLOBULIN RATIO 1.1 (0.8-2.0); ANION GAP 18.4 mmol/L (8-16); CALCIUM 8.7 mg/dL (8.4-10.2); CREATININE, SERUM 1.29 mg/dL (0.57-1.11); POTASSIUM 4.4 mmol/L (3.5-5.1)
[2021-06-07] MEDS: INSULIN LISPRO 100 UNIT/1 ML 3ML VIAL SQ SCH ×4 (07:30→20:43)
[2021-06-07] MEDS: CEFEPIME 1 GM in SODIUM CHLORIDE 0.9% 50ML 50 ML IV SCH ×2 (08:46→20:43)
[2021-06-07] MEDS: HOME MEDICATION--PATIENTS OWN PO SCH ×2 (08:46→15:20)
[2021-06-07] MEDS: PANTOPRAZOLE SOD 40 MG TABEC PO SCH (08:47)
[2021-06-07] MEDS: NIFEDIPINE CR 30 MG TAB PO SCH (08:47)
[2021-06-07] MEDS: DOXYCYCLINE HYCLATE TABLET 100 MG TAB PO SCH ×2 (08:47→16:49)
[2021-06-07] MEDS: METOPROLOL SUCCINATE 50 MG TAB XL PO SCH ×2 (08:47→16:49)
[2021-06-07] MEDS ORDERED: SODIUM CHLORIDE FLUSH 10 ML SYR INJ PRN (10:15)
[2021-06-07] MEDS: APIXAB 2.5 MG TABLET PO SCH ×2 (11:30→16:49)
[2021-06-07] MEDS: ATORVASTATIN 20 MG TAB PO SCH (20:44)
[2021-06-08] VITALS (8 sets, daily range): BP systolic 131–166; BP diastolic 84–104
[2021-06-08] MEDS: ALBUTEROL/IPRATROPIUM 3 ML NEB NEB SCH ×4 (02:30→19:46)
[2021-06-08 05:54] LABS: BASOPHILS % 0.3 % (0.0-1.0); EOSINOPHILS % 0.2 % (0.0-6.0); HEMATOCRIT 30.9 % (34.2-44.1); HEMOGLOBIN 9.6 g/dL (12.0-16.0); LYMPHOCYTES # (AUTO) 0.7 (1.0-3.2); LYMPHOCYTES % 5.3 % (18.0-39.1); MEAN CORPUSCULAR HEMOGLOBIN 27.7 pg (28-32); MEAN CORPUSCULAR HGB CONC 31.1 g/dL (31-35); MEAN CORPUSCULAR VOLUME 89.3 fL (81-99); MONOCYTES # (AUTO) 1.2 (0.2-0.8); MONOCYTES % 8.9 % (4.4-11.3); NEUTROPHILS # (AUTO) 10.6 (2.1-6.9); NEUTROPHILS % 80.3 % (38.7-80.0); PLATELET COUNT 223 x10e3/uL (140-360); RED BLOOD COUNT 3.46 x10e6/uL (3.6-5.1); RED CELL DISTRIBUTION WIDTH 18.2 % (11.7-14.4)
[2021-06-08] MEDS: HYDRALAZINE HCL 25 MG TAB PO SCH ×3 (06:02→21:05)
[2021-06-08] MEDS: NYSTATIN SUSPENSION 5 ML UDC PO SCH ×5 (06:03→23:29)
[2021-06-08] MEDS: METHYLPREDNISOLONE SOD SUCC 40 MG/ML VIAL 1ML IV SCH (06:03)
[2021-06-08 06:30] LABS: ANION GAP 15.4 mmol/L (8-16); CALCIUM 7.8 mg/dL (8.4-10.2); CREATININE, SERUM 1.14 mg/dL (0.57-1.11); POTASSIUM 4.4 mmol/L (3.5-5.1)
[2021-06-08] MEDS: INSULIN LISPRO 100 UNIT/1 ML 3ML VIAL SQ SCH ×4 (07:30→21:00)
[2021-06-08] MEDS: HOME MEDICATION--PATIENTS OWN PO SCH ×2 (09:00→17:00)
[2021-06-08] MEDS: DOXYCYCLINE HYCLATE TABLET 100 MG TAB PO SCH (10:18)
[2021-06-08] MEDS: PANTOPRAZOLE SOD 40 MG TABEC PO SCH (10:18)
[2021-06-08] MEDS: NIFEDIPINE CR 30 MG TAB PO SCH (10:18)
[2021-06-08] MEDS: METOPROLOL SUCCINATE 50 MG TAB XL PO SCH ×2 (10:18→17:05)
[2021-06-08] MEDS: APIXAB 2.5 MG TABLET PO SCH ×2 (10:19→17:04)
[2021-06-08] MEDS: CEFEPIME 1 GM in SODIUM CHLORIDE 0.9% 50ML 50 ML IV SCH ×2 (10:19→21:03)
[2021-06-08] MEDS: FLUCONAZOLE 100 MG TAB PO SCH (14:19)
[2021-06-08] MEDS: GUAIFENESIN 200 MG/10 ML UDC PO SCH ×2 (14:20→21:05)
[2021-06-08] MEDS: ATORVASTATIN 20 MG TAB PO SCH (21:03)
[2021-06-09] VITALS (8 sets, daily range): BP systolic 121–160; BP diastolic 59–92
[2021-06-09] MEDS: ALBUTEROL/IPRATROPIUM 3 ML NEB NEB SCH ×4 (02:50→19:40)
[2021-06-09] MEDS: HYDRALAZINE HCL 25 MG TAB PO SCH ×3 (05:49→21:41)
[2021-06-09] MEDS: GUAIFENESIN 200 MG/10 ML UDC PO SCH ×3 (05:50→21:42)
[2021-06-09] MEDS: NYSTATIN SUSPENSION 5 ML UDC PO SCH (05:50)
[2021-06-09] MEDS: METHYLPREDNISOLONE SOD SUCC 40 MG/ML VIAL 1ML IV SCH (05:50)
[2021-06-09] MEDS: INSULIN LISPRO 100 UNIT/1 ML 3ML VIAL SQ SCH ×4 (07:30→20:47)
[2021-06-09] MEDS: PANTOPRAZOLE SOD 40 MG TABEC PO SCH (09:00)
[2021-06-09] MEDS: HOME MEDICATION--PATIENTS OWN PO SCH ×2 (09:00→17:00)
[2021-06-09] MEDS: CEFEPIME 1 GM in SODIUM CHLORIDE 0.9% 50ML 50 ML IV SCH ×2 (09:00→20:45)
[2021-06-09] MEDS: METOPROLOL SUCCINATE 50 MG TAB XL PO SCH ×2 (09:00→17:15)
[2021-06-09] MEDS: NIFEDIPINE CR 30 MG TAB PO SCH (09:00)
[2021-06-09] MEDS: APIXAB 2.5 MG TABLET PO SCH ×2 (09:00→17:16)
[2021-06-09] MEDS ORDERED: COVID-19 VACC, MRNA(PFIZER)/PF 30 MCG/0.3 ML VIAL IM SCH (10:30)
[2021-06-09] MEDS: FLUCONAZOLE 100 MG TAB PO SCH (14:58)
[2021-06-09] MEDS: ATORVASTATIN 20 MG TAB PO SCH (20:44)
[2021-06-10] VITALS (8 sets, daily range): BP systolic 115–144; BP diastolic 61–98
[2021-06-10] MEDS: ALBUTEROL/IPRATROPIUM 3 ML NEB NEB SCH ×4 (02:35→19:11)
[2021-06-10 05:10] LABS: BASOPHILS % 0.2 % (0.0-1.0); EOSINOPHILS % 0.1 % (0.0-6.0); HEMATOCRIT 29.8 % (34.2-44.1); HEMOGLOBIN 9.1 g/dL (12.0-16.0); LYMPHOCYTES # (AUTO) 0.5 (1.0-3.2); MEAN CORPUSCULAR HGB CONC 30.5 g/dL (31-35); MEAN CORPUSCULAR VOLUME 88.4 fL (81-99); MONOCYTES # (AUTO) 1.3 (0.2-0.8); MONOCYTES % 7.6 % (4.4-11.3); NEUTROPHILS # (AUTO) 14.4 (2.1-6.9); PLATELET COUNT 203 x10e3/uL (140-360); RED BLOOD COUNT 3.37 x10e6/uL (3.6-5.1); RED CELL DISTRIBUTION WIDTH 18.4 % (11.7-14.4)
[2021-06-10 05:41] LABS: ANION GAP 14.2 mmol/L (8-16); CALCIUM 8.6 mg/dL (8.4-10.2); CREATININE, SERUM 1.1 mg/dL (0.57-1.11); POTASSIUM 4.2 mmol/L (3.5-5.1)
[2021-06-10] MEDS: GUAIFENESIN 200 MG/10 ML UDC PO SCH ×3 (06:00→21:25)
[2021-06-10] MEDS: HYDRALAZINE HCL 25 MG TAB PO SCH ×3 (06:13→21:25)
[2021-06-10] MEDS: INSULIN LISPRO 100 UNIT/1 ML 3ML VIAL SQ SCH ×4 (07:30→21:00)
[2021-06-10] MEDS ORDERED: CEFEPIME HCL 1 GM VIAL ONE (09:00)
[2021-06-10] MEDS: HOME MEDICATION--PATIENTS OWN PO SCH ×2 (09:00→17:00)
[2021-06-10] MEDS: METHYLPREDNISOLONE SOD SUCC 40 MG/ML VIAL 1ML IV SCH (09:32)
[2021-06-10] MEDS: APIXAB 2.5 MG TABLET PO SCH ×2 (09:33→17:49)
[2021-06-10] MEDS: FLUCONAZOLE 100 MG TAB PO SCH (09:33)
[2021-06-10] MEDS: PANTOPRAZOLE SOD 40 MG TABEC PO SCH (09:34)
[2021-06-10] MEDS: METOPROLOL SUCCINATE 50 MG TAB XL PO SCH (09:36)
[2021-06-10] MEDS: NIFEDIPINE CR 30 MG TAB PO SCH (09:36)
[2021-06-10] MEDS: CEFEPIME 1 GM in SODIUM CHLORIDE 0.9% 50ML 50 ML IV SCH ×2 (09:37→21:24)
[2021-06-10] MEDS ORDERED: METOPROLOL TARTRATE 50 MG TAB PO ONE (12:00)
[2021-06-10] MEDS ORDERED: DIGOXIN INJ 0.25 MG/ML 2 ML AMP IV ONE (15:00)
[2021-06-10] MEDS ORDERED: METOPROLOL SUCCINATE 50 MG TAB XL PO SCH (17:00)
[2021-06-10] MEDS: ATORVASTATIN 20 MG TAB PO SCH (21:24)
[2021-06-11] VITALS (8 sets, daily range): BP systolic 133–155; BP diastolic 57–95
[2021-06-11] MEDS: ALBUTEROL/IPRATROPIUM 3 ML NEB NEB SCH ×3 (02:38→13:48)
[2021-06-11] MEDS: HYDRALAZINE HCL 25 MG TAB PO SCH ×3 (05:39→20:13)
[2021-06-11] MEDS: GUAIFENESIN 200 MG/10 ML UDC PO SCH ×3 (05:39→20:14)
[2021-06-11] MEDS: METHYLPREDNISOLONE SOD SUCC 40 MG/ML VIAL 1ML IV SCH (05:39)
[2021-06-11] MEDS: INSULIN LISPRO 100 UNIT/1 ML 3ML VIAL SQ SCH ×4 (07:30→20:34)
[2021-06-11] MEDS: HOME MEDICATION--PATIENTS OWN PO SCH ×2 (09:00→16:43)
[2021-06-11] MEDS: PANTOPRAZOLE SOD 40 MG TABEC PO SCH (09:24)
[2021-06-11] MEDS: FLUCONAZOLE 100 MG TAB PO SCH (09:24)
[2021-06-11] MEDS: CEFEPIME 1 GM in SODIUM CHLORIDE 0.9% 50ML 50 ML IV SCH ×2 (09:24→20:11)
[2021-06-11] MEDS: APIXAB 2.5 MG TABLET PO SCH ×2 (09:24→17:06)
[2021-06-11] MEDS: DIGOXIN 0.125 MG TAB PO SCH (09:25)
[2021-06-11] MEDS: METOPROLOL SUCCINATE 50 MG TAB XL PO SCH (09:30)
[2021-06-11] MEDS: ATORVASTATIN 20 MG TAB PO SCH (20:12)
[2021-06-12] VITALS (8 sets, daily range): BP systolic 156–177; BP diastolic 58–96
[2021-06-12] MEDS: GUAIFENESIN 200 MG/10 ML UDC PO SCH ×3 (06:00→21:02)
[2021-06-12] MEDS: HYDRALAZINE HCL 25 MG TAB PO SCH ×3 (06:16→21:02)
[2021-06-12] MEDS: INSULIN LISPRO 100 UNIT/1 ML 3ML VIAL SQ SCH ×4 (07:30→21:00)
[2021-06-12] MEDS: HOME MEDICATION--PATIENTS OWN PO SCH ×2 (08:58→17:00)
[2021-06-12] MEDS: FLUCONAZOLE 100 MG TAB PO SCH (08:58)
[2021-06-12] MEDS: APIXAB 2.5 MG TABLET PO SCH ×2 (08:58→17:01)
[2021-06-12] MEDS: DIGOXIN 0.125 MG TAB PO SCH (08:59)
[2021-06-12] MEDS: PANTOPRAZOLE SOD 40 MG TABEC PO SCH (09:00)
[2021-06-12] MEDS ORDERED: PREDNISONE 20 MG TAB PO SCH (09:00)
[2021-06-12] MEDS: METOPROLOL SUCCINATE 50 MG TAB XL PO SCH (09:03)
[2021-06-12] MEDS: CEFEPIME 1 GM in SODIUM CHLORIDE 0.9% 50ML 50 ML IV SCH ×2 (09:12→21:01)
[2021-06-12] MEDS: ATORVASTATIN 20 MG TAB PO SCH (21:01)
[2021-06-13] VITALS (7 sets, daily range): BP systolic 145–178; BP diastolic 69–98
[2021-06-13] MEDS: GUAIFENESIN 200 MG/10 ML UDC PO SCH ×3 (05:54→21:17)
[2021-06-13] MEDS: HYDRALAZINE HCL 25 MG TAB PO SCH ×3 (05:54→21:17)
[2021-06-13 06:22] LABS: BASOPHILS % 0.4 % (0.0-1.0); EOSINOPHILS # (AUTO) 0.1 (0.0-0.4); EOSINOPHILS % 0.6 % (0.0-6.0); HEMATOCRIT 32.5 % (34.2-44.1); HEMOGLOBIN 10.5 g/dL (12.0-16.0); LYMPHOCYTES # (AUTO) 0.5 (1.0-3.2); LYMPHOCYTES % 4.3 % (18.0-39.1); MEAN CORPUSCULAR HGB CONC 32.3 g/dL (31-35); MEAN CORPUSCULAR VOLUME 89.8 fL (81-99); MONOCYTES # (AUTO) 1.3 (0.2-0.8); MONOCYTES % 11.9 % (4.4-11.3); NEUTROPHILS # (AUTO) 8.8 (2.1-6.9); NEUTROPHILS % 78.5 % (38.7-80.0); PLATELET COUNT 201 x10e3/uL (140-360); RED BLOOD COUNT 3.62 x10e6/uL (3.6-5.1); RED CELL DISTRIBUTION WIDTH 18.9 % (11.7-14.4)
[2021-06-13 06:59] LABS: ANION GAP 14.5 mmol/L (8-16); CALCIUM 7.9 mg/dL (8.4-10.2); CREATININE, SERUM 0.92 mg/dL (0.57-1.11); POTASSIUM 4.5 mmol/L (3.5-5.1)
[2021-06-13] MEDS: INSULIN LISPRO 100 UNIT/1 ML 3ML VIAL SQ SCH ×4 (07:30→21:00)
[2021-06-13] MEDS: HOME MEDICATION--PATIENTS OWN PO SCH ×2 (09:00→17:00)
[2021-06-13] MEDS ORDERED: PREDNISONE 10 MG TAB PO SCH (09:00)
[2021-06-13] MEDS: CEFEPIME 1 GM in SODIUM CHLORIDE 0.9% 50ML 50 ML IV SCH ×2 (09:43→21:16)
[2021-06-13] MEDS: APIXAB 2.5 MG TABLET PO SCH ×2 (09:44→18:16)
[2021-06-13] MEDS: PANTOPRAZOLE SOD 40 MG TABEC PO SCH (09:44)
[2021-06-13] MEDS: FLUCONAZOLE 100 MG TAB PO SCH (09:44)
[2021-06-13] MEDS: DIGOXIN 0.125 MG TAB PO SCH (09:44)
[2021-06-13] MEDS: METOPROLOL SUCCINATE 50 MG TAB XL PO SCH (09:44)
[2021-06-13] MEDS: ATORVASTATIN 20 MG TAB PO SCH (21:16)
== END 2021-06-13 22:09 | disposition home health service (06) | DRG 177 ==
LOC: ER 19:44 → ERHOLD 22:06 → MED/SURG2 05-30 12:14
PROVIDERS: ADMIT Internal Medicine; ATTEND Internal Medicine
DX: J15.6 Pneumonia due to other Gram-negative bacteria (principal); B37.1 Pulmonary candidiasis; N17.9 Acute kidney failure, unspecified; I13.0 Hypertensive heart and chronic kidney disease with heart failure and stage 1 through stage 4 chronic kidney disease, or unspecified chronic kidney disease; I50.32 Chronic diastolic (congestive) heart failure; J84.10 Pulmonary fibrosis, unspecified; J43.9 Emphysema, unspecified; I48.0 Paroxysmal atrial fibrillation; Z79.01 Long term (current) use of anticoagulants; Z20.822 Contact with and (suspected) exposure to COVID-19; Z99.81 Dependence on supplemental oxygen; D63.1 Anemia in chronic kidney disease; N18.9 Chronic kidney disease, unspecified; R09.02 Hypoxemia; R54 Age-related physical debility; E78.5 Hyperlipidemia, unspecified; E66.9 Obesity, unspecified; Z68.24 Body mass index [BMI] 24.0-24.9, adult; Z23 Encounter for immunization
CPT/HCPCS: 36415; 36600; 71045; 71046; 71250; 80048; 80053; 82550; 82553; 82805; 82948; 83605; 83880; 84484; 85025; 85610; 85730; 87040; 87070; 87186; 87205; 93005; 93306; 94640; 94667; 94669; 96372; 97139; 99251; 99285; J0456; J0692; J0696; J1160; J1940; J2920; J7050; J7512; Q9967; U0002

== ENCOUNTER 2021-07-03 16:16 | Observation (INO) | payer OTHER ==
[~2021-07-03] VITALS: Ht 142.2 cm; Wt 57.2 kg
[~2021-07-03 16:16] MED LIST changes: +AMLODIPINE BESYL5 MG PO; +IPRATROPIU0.2 MG/1 M INH
[2021-07-03] MEDS ORDERED: ASPIRIN 81 MG CHEW TAB PO ONE (17:15)
[2021-07-03 19:01] LABS: BASOPHILS % 0.5 % (0.0-1.0); EOSINOPHILS # (AUTO) 0.1 (0.0-0.4); EOSINOPHILS % 1.3 % (0.0-6.0); HEMATOCRIT 33.4 % (34.2-44.1); HEMOGLOBIN 10.3 g/dL (12.0-16.0); LYMPHOCYTES # (AUTO) 0.5 (1.0-3.2); LYMPHOCYTES % 8.7 % (18.0-39.1); MEAN CORPUSCULAR HEMOGLOBIN 28.2 pg (28-32); MEAN CORPUSCULAR HGB CONC 30.8 g/dL (31-35); MEAN CORPUSCULAR VOLUME 91.5 fL (81-99); MONOCYTES # (AUTO) 0.8 (0.2-0.8); MONOCYTES % 13.4 % (4.4-11.3); NEUTROPHILS # (AUTO) 4.4 (2.1-6.9); NEUTROPHILS % 72.8 % (38.7-80.0); PLATELET COUNT 246 x10e3/uL (140-360); RED BLOOD COUNT 3.65 x10e6/uL (3.6-5.1); RED CELL DISTRIBUTION WIDTH 18.4 % (11.7-14.4)
[2021-07-03 19:12] LABS: ALBUMIN 3.2 g/dL (3.5-5.0); ALBUMIN/GLOBULIN RATIO 1.1 (0.8-2.0); ANION GAP 15.8 mmol/L (8-16); CALCIUM 8.7 mg/dL (8.4-10.2); CREATININE, SERUM 1.33 mg/dL (0.57-1.11); POTASSIUM 4.8 mmol/L (3.5-5.1)
[2021-07-03 19:18] LABS: CREATINE KINASE MB 6.3 ng/mL (0-5.0)
[2021-07-03] MEDS ORDERED: DIGOXIN IMMUNE FAB 40 MG VIAL IV ONE ×2 (19:45→21:30)
[2021-07-03] MEDS ORDERED: SODIUM CHLORIDE 0.9% 50ML 50 ML ONE ×2 (19:50→21:35)
[2021-07-03] MEDS: SODIUM CHLORIDE 0.9% 1000ML 1,000 ML IV SCH (20:10)
[2021-07-03 21:00] VITALS: BP 158/89
[2021-07-03 22:58] VITALS: BP 158/89
[2021-07-04] VITALS (8 sets, daily range): BP systolic 158–196; BP diastolic 55–95
[2021-07-04] MEDS: SODIUM CHLORIDE 0.9% 1000ML 1,000 ML IV SCH (04:05)
[2021-07-04 05:01] LABS: BASOPHILS % 0.7 % (0.0-1.0); EOSINOPHILS # (AUTO) 0.1 (0.0-0.4); EOSINOPHILS % 1.6 % (0.0-6.0); HEMATOCRIT 35.3 % (34.2-44.1); HEMOGLOBIN 10.9 g/dL (12.0-16.0); LYMPHOCYTES # (AUTO) 0.6 (1.0-3.2); LYMPHOCYTES % 10.4 % (18.0-39.1); MEAN CORPUSCULAR HEMOGLOBIN 28.4 pg (28-32); MEAN CORPUSCULAR HGB CONC 30.9 g/dL (31-35); MEAN CORPUSCULAR VOLUME 91.9 fL (81-99); MONOCYTES # (AUTO) 0.8 (0.2-0.8); NEUTROPHILS % 70.3 % (38.7-80.0); PLATELET COUNT 216 x10e3/uL (140-360); RED BLOOD COUNT 3.84 x10e6/uL (3.6-5.1); RED CELL DISTRIBUTION WIDTH 18.3 % (11.7-14.4)
[2021-07-04 05:38] LABS: ANION GAP 15.5 mmol/L (8-16); CALCIUM 8.4 mg/dL (8.4-10.2); CREATININE, SERUM 1.13 mg/dL (0.57-1.11); POTASSIUM 3.5 mmol/L (3.5-5.1)
[2021-07-04] MEDS ORDERED: HYDRALAZINE HCL 25 MG TAB PO PRN (10:45)
[2021-07-04] MEDS ORDERED: BENZONATATE 100 MG CAP PO PRN (14:00)
[2021-07-04] MEDS ORDERED: IPRATROPIUM BROMIDE 0.02% 2.5 ML NEB INH SCH (15:00)
[2021-07-04] MEDS ORDERED: POTASSIUM CHLORIDE 20 MEQ TAB CR PO ONE (16:30)
[2021-07-04] MEDS: APIXAB 2.5 MG TABLET PO SCH (16:50)
[2021-07-05] VITALS (7 sets, daily range): BP systolic 132–188; BP diastolic 54–97
[2021-07-05 06:35] LABS: BASOPHILS % 0.6 % (0.0-1.0); EOSINOPHILS # (AUTO) 0.1 (0.0-0.4); EOSINOPHILS % 1.1 % (0.0-6.0); HEMATOCRIT 34.7 % (34.2-44.1); LYMPHOCYTES # (AUTO) 0.6 (1.0-3.2); LYMPHOCYTES % 8.5 % (18.0-39.1); MEAN CORPUSCULAR HEMOGLOBIN 28.4 pg (28-32); MEAN CORPUSCULAR HGB CONC 31.7 g/dL (31-35); MEAN CORPUSCULAR VOLUME 89.4 fL (81-99); MONOCYTES # (AUTO) 0.8 (0.2-0.8); MONOCYTES % 12.7 % (4.4-11.3); NEUTROPHILS # (AUTO) 4.9 (2.1-6.9); NEUTROPHILS % 73.3 % (38.7-80.0); PLATELET COUNT 217 x10e3/uL (140-360); RED BLOOD COUNT 3.88 x10e6/uL (3.6-5.1); RED CELL DISTRIBUTION WIDTH 18.7 % (11.7-14.4)
[2021-07-05 06:58] LABS: CALCIUM 8.2 mg/dL (8.4-10.2); CREATININE, SERUM 0.85 mg/dL (0.57-1.11)
[2021-07-05] MEDS: APIXAB 2.5 MG TABLET PO SCH (08:40)
[2021-07-05] MEDS ORDERED: PANTOPRAZOLE SOD 40 MG TABEC PO SCH (09:00)
[2021-07-05] MEDS ORDERED: ATORVASTATIN 20 MG TAB PO SCH (09:00)
[2021-07-05] MEDS ORDERED: METOPROLOL TARTRATE 25 MG TAB PO SCH (10:00)
[2021-07-05] MEDS ORDERED: NIFEDIPINE CR 30 MG TAB PO SCH (10:00)
[2021-07-05] MEDS ORDERED: METOPROLOL SUCC50 MG PO (10:56)
== END 2021-07-05 14:00 | disposition home or self-care (01) ==
LOC: ER 18:53 → ERHOLD 20:05 → MED/SURG2 23:12 → OBSVTOIN 07-05 08:46 → INTOOBSV 07-05 08:46
PROVIDERS: ADMIT Internal Medicine; ATTEND Internal Medicine
DX: I48.91 Unspecified atrial fibrillation (principal); T46.0X5A Adverse effect of cardiac-stimulant glycosides and drugs of similar action, initial encounter; Z79.01 Long term (current) use of anticoagulants; I10 Essential (primary) hypertension; J43.9 Emphysema, unspecified; R00.1 Bradycardia, unspecified
CPT/HCPCS: 36415; 80048; 80053; 80162; 82550; 82553; 84484; 85025; 93005; 94640; 99284; G0378; J7030; U0002

== ENCOUNTER 2021-10-17 12:38 | Inpatient (IN) | payer OTHER ==
[~2021-10-17] VITALS: Ht 160 cm; Wt 55.3 kg
[2021-10-17] MEDS ORDERED: SODIUM CHLORIDE 0.9% 1000ML 500 ML IV STA (12:46)
[2021-10-17] MEDS ORDERED: DEXAMETHASONE SOD PHOS 10 MG/1 ML VIAL IV ONE (13:00)
[2021-10-17] MEDS ORDERED: ASPIRIN 81 MG CHEW TAB PO ONE (13:00)
[2021-10-17] MEDS ORDERED: ALBUTEROL SULFATE HFA 8GM INHALATION AEROSOL INH PRN (13:00)
[2021-10-17 13:11] LABS: BASOPHILS % 0.1 % (0.0-1.0); EOSINOPHILS % 0.1 % (0.0-6.0); HEMATOCRIT 36.1 % (34.2-44.1); HEMOGLOBIN 11.1 g/dL (12.0-16.0); LYMPHOCYTES # (AUTO) 1.3 (1.0-3.2); MEAN CORPUSCULAR HEMOGLOBIN 30.7 pg (28-32); MEAN CORPUSCULAR HGB CONC 30.7 g/dL (31-35); MEAN CORPUSCULAR VOLUME 99.7 fL (81-99); MONOCYTES # (AUTO) 0.8 (0.2-0.8); MONOCYTES % 10.4 % (4.4-11.3); NEUTROPHILS # (AUTO) 5.7 (2.1-6.9); PLATELET COUNT 175 x10e3/uL (140-360); RED BLOOD COUNT 3.62 x10e6/uL (3.6-5.1); RED CELL DISTRIBUTION WIDTH 16.9 % (11.7-14.4)
[2021-10-17 13:25] LABS: INR 1.1; PROTHROMBIN TIME 15.1 seconds (11.9-14.5)
[2021-10-17 13:26] LABS: PARTIAL THROMBOPLASTIN TIME 39.9 seconds (23.8-35.5)
[2021-10-17 13:33] LABS: ALBUMIN 3.8 g/dL (3.5-5.0); CALCIUM 8.9 mg/dL (8.4-10.2); CREATININE, SERUM 1.43 mg/dL (0.57-1.11)
[2021-10-17 13:41] LABS: CREATINE KINASE MB 3.1 ng/mL (0-5.0)
[2021-10-17] MEDS: CEFTRIAXONE 1 GM in SODIUM CHLORIDE 0.9% 50ML 50 ML IV SCH (14:00)
[2021-10-17] MEDS ORDERED: DILTIAZEM HCL 5 MG/ML 5 ML VIAL IV STA ×3 (14:03→15:16)
[2021-10-17] MEDS ORDERED: DILTIAZEM HCL VIAL 5 ML ONE (14:11)
[2021-10-17] MEDS ORDERED: ACETAMINOPHEN 325 MG TAB PO ONE (14:15)
[2021-10-17] MEDS ORDERED: SODIUM CHLORIDE FLUSH 10 ML SYR INJ PRN (15:00)
[2021-10-17] MEDS ORDERED: AMIODARONE HCL 360MG 200 ML IV SCH ×2 (16:00→18:00)
[2021-10-17] MEDS ORDERED: AMIODARONE HCL 150MG 100 ML IV ONE (16:15)
[2021-10-17] MEDS ORDERED: AMIODARONE 900MG 500 ML IV SCH (16:30)
[2021-10-17] MEDS: APIXAB 2.5 MG TABLET PO SCH (17:00)
[2021-10-17 17:30] LABS: CLARITY,URINE CLEAR (CLEAR); COLOR,URINE YELLOW (YELLOW); KETONES,URINE NEGATIVE (NEGATIVE); LEUKOCYTE ESTERASE ,URINE NEGATIVE (NEGATIVE); NITRITE,URINE POSITIVE (NEGATIVE); PROTEIN,URINE DIPSTICK >=300 (NEGATIVE); URINE UROBILINOGEN 0.2 mg/dL (0.2 - 1)
[2021-10-17 17:43] LABS: RBC,URINE 0-5 /HPF (0-5)
[2021-10-17 17:44] LABS: BACTERIA,URINE MANY /HPF
[2021-10-17 20:47] LABS: CREATINE KINASE MB 2.8 ng/mL (0-5.0)
[2021-10-17 21:00] VITALS: BP 155/92
[2021-10-17 21:30] VITALS: BP 155/92
[2021-10-17] MEDS: AMIODARONE 900MG 500 ML IV SCH (22:45)
[2021-10-17 23:00] VITALS: BP 148/82
[2021-10-17 23:29] LABS: CREATINE KINASE MB 2.6 ng/mL (0-5.0)
[2021-10-18] VITALS (8 sets, daily range): BP systolic 139–178; BP diastolic 68–107
[2021-10-18 06:31] LABS: HEMATOCRIT 31.5 % (34.2-44.1); LYMPHOCYTES # (AUTO) 0.5 (1.0-3.2); LYMPHOCYTES % 4.7 % (18.0-39.1); MEAN CORPUSCULAR HEMOGLOBIN 30.7 pg (28-32); MEAN CORPUSCULAR HGB CONC 31.4 g/dL (31-35); MEAN CORPUSCULAR VOLUME 97.5 fL (81-99); MONOCYTES # (AUTO) 0.4 (0.2-0.8); MONOCYTES % 3.8 % (4.4-11.3); NEUTROPHILS # (AUTO) 8.8 (2.1-6.9); NEUTROPHILS % 91.1 % (38.7-80.0); PLATELET COUNT 141 x10e3/uL (140-360); RED BLOOD COUNT 3.23 x10e6/uL (3.6-5.1); RED CELL DISTRIBUTION WIDTH 16.5 % (11.7-14.4)
[2021-10-18 06:45] LABS: HEMOGLOBIN 9.9 g/dL (12.0-16.0)
[2021-10-18 06:51] LABS: ALKALINE PHOSPHATASE 60 IU/L (40-150); ANION GAP 11.5 mmol/L (8-16); BLOOD UREA NITROGEN 21 mg/dL (7-26); BUN/CREATININE RATIO 20 (6-25); CALCIUM 8.1 mg/dL (8.4-10.2); CARBON DIOXIDE 18 mmol/L (22-29); CHLORIDE 115 mmol/L (98-107); CREATININE, SERUM 1.07 mg/dL (0.57-1.11); EST GLOMERULAR FILTRATION RATE 49 ML/MIN (60-); GLUCOSE 160 mg/dL (74-118); POTASSIUM 4.5 mmol/L (3.5-5.1); SODIUM 140 mmol/L (136-145)
[2021-10-18 06:53] LABS: CREATINE KINASE MB 2.2 ng/mL (0-5.0)
[2021-10-18 07:16] LABS: ALANINE AMINOTRANSFERASE < 6 IU/L (0-55)
[2021-10-18 07:43] LABS: BAND NEUTROPHILS % (MANUAL) 2 %; LYMPHOCYTES % (MANUAL) 5 % (19-48); MONOCYTES % (MANUAL) 5 % (3.4-9.0); NEUTROPHILS % (MANUAL) 88 % (40-74); PLATELET ESTIMATE ADEQUATE; PLATELET MORPHOLOGY COMMENT NORMAL; RBC MORPHOLOGY COMMENT NORMAL
[2021-10-18] MEDS: CEFTRIAXONE 1 GM in SODIUM CHLORIDE 0.9% 50ML 50 ML IV SCH (08:35)
[2021-10-18] MEDS: APIXAB 2.5 MG TABLET PO SCH (08:44)
[2021-10-18] MEDS: ATORVASTATIN 20 MG TAB PO SCH (08:44)
[2021-10-18] MEDS: METOPROLOL SUCCINATE 50 MG TAB XL PO SCH (08:45)
[2021-10-18] MEDS ORDERED: PANTOPRAZOLE SOD 40 MG TABEC PO SCH (09:00)
[2021-10-18] MEDS ORDERED: BENICAR20 MG PO (09:18)
[2021-10-18] MEDS ORDERED: NIFEDIPINE ER30 M1 PO (09:23)
[2021-10-18] MEDS ORDERED: METOPROLOL SUCC50 MG PO (09:24)
[2021-10-18] MEDS: CHOLECALCIFEROL 1,000 UNIT TAB PO SCH (10:00)
[2021-10-18] MEDS ORDERED: DEXAMETHASONE SOD PHOS 10 MG/1 ML VIAL IV ONE (15:00)
[2021-10-18] MEDS ORDERED: REMDESIVIR 100MG 200 MG in SODIUM CHLORIDE 0.9% 100 ML IV ONE (16:00)
[2021-10-18] MEDS ORDERED: APIXAB 2.5 MG TABLET PO SCH (17:00)
[2021-10-18] MEDS: METOPROLOL TARTRATE INJ 1 MG/ML VIAL IV SCH ×2 (17:32→21:52)
[2021-10-18] MEDS: APIXABAN 5 MG TABLET PO SCH (17:32)
[2021-10-18] MEDS: ASCORBIC ACID 500 MG TAB PO SCH (17:32)
[2021-10-18] MEDS: AMIODARONE 900MG 500 ML IV SCH (20:12)
[2021-10-18] MEDS ORDERED: ALBUTEROL SULFATE HFA 8GM INHALATION AEROSOL INH SCH (23:00)
[2021-10-18] MEDS: LABETALOL HCL 5 MG/ML 20ML VIAL IV PRN (23:38)
[2021-10-19] VITALS (10 sets, daily range): BP systolic 138–192; BP diastolic 79–116
[2021-10-19] MEDS: METOPROLOL TARTRATE INJ 1 MG/ML VIAL IV SCH ×6 (02:32→20:19)
[2021-10-19 06:34] LABS: ANION GAP 14.7 mmol/L (8-16); CALCIUM 8.5 mg/dL (8.4-10.2); CREATININE, SERUM 0.94 mg/dL (0.57-1.11); POTASSIUM 4.7 mmol/L (3.5-5.1)
[2021-10-19] MEDS: APIXABAN 5 MG TABLET PO SCH (08:09)
[2021-10-19] MEDS: ASCORBIC ACID 500 MG TAB PO SCH (08:09)
[2021-10-19] MEDS: CHOLECALCIFEROL 1,000 UNIT TAB PO SCH (08:09)
[2021-10-19] MEDS: ATORVASTATIN 20 MG TAB PO SCH (08:09)
[2021-10-19] MEDS: DEXAMETHASONE SOD PHOS 10 MG/1 ML VIAL IV SCH (09:05)
[2021-10-19] MEDS: CEFTRIAXONE 1 GM in SODIUM CHLORIDE 0.9% 50ML 50 ML IV SCH (09:05)
[2021-10-19] MEDS ORDERED: DEXTROSE 5%/0.45% SOD CHL 1,000 ML IV SCH (11:00)
[2021-10-19] MEDS: CLONIDINE HCL 0.2 MG/24 HR 1 EA PATCH TOP SCH (12:42)
[2021-10-19] MEDS: ENOXAPARIN SOD INJ 60 MG/0.6 ML SYR SC SCH ×2 (12:42→20:20)
[2021-10-19] MEDS: REMDESIVIR 100MG 100 MG in SODIUM CHLORIDE 0.9% 100 ML IV SCH (14:00)
[2021-10-19] MEDS ORDERED: NIFEDIPINE CR 30 MG TAB PO NR (14:15)
[2021-10-19] MEDS: AMIODARONE 900MG 500 ML IV SCH (23:58)
[2021-10-20] VITALS (20 sets, daily range): BP systolic 120–213; BP diastolic 80–117
[2021-10-20 00:42] LABS: CLARITY,URINE CLEAR (CLEAR); COLOR,URINE YELLOW (YELLOW); LEUKOCYTE ESTERASE ,URINE NEGATIVE (NEGATIVE)
[2021-10-20 00:43] LABS: KETONES,URINE NEGATIVE (NEGATIVE); NITRITE,URINE NEGATIVE (NEGATIVE); PROTEIN,URINE DIPSTICK 2+ (NEGATIVE); URINE UROBILINOGEN 0.2 mg/dL (0.2 - 1)
[2021-10-20 00:44] LABS: AMORPHOUS SEDIMENT,URINE MODERATE (FEW); BACTERIA,URINE MODERATE /HPF
[2021-10-20] MEDS: METOPROLOL TARTRATE INJ 1 MG/ML VIAL IV SCH ×2 (01:38→05:24)
[2021-10-20] MEDS: LABETALOL HCL 5 MG/ML 20ML VIAL IV PRN (02:13)
[2021-10-20] MEDS: GUAIFENESIN/CODEINE 5 ML LIQD PO PRN (05:24)
[2021-10-20 06:04] LABS: BASOPHILS % 0.1 % (0.0-1.0); HEMATOCRIT 34.7 % (34.2-44.1); HEMOGLOBIN 11.1 g/dL (12.0-16.0); LYMPHOCYTES # (AUTO) 0.3 (1.0-3.2); LYMPHOCYTES % 1.9 % (18.0-39.1); MEAN CORPUSCULAR HEMOGLOBIN 30.8 pg (28-32); MEAN CORPUSCULAR VOLUME 96.4 fL (81-99); MONOCYTES # (AUTO) 0.7 (0.2-0.8); MONOCYTES % 5.6 % (4.4-11.3); NEUTROPHILS # (AUTO) 11.9 (2.1-6.9); NEUTROPHILS % 91.8 % (38.7-80.0); PLATELET COUNT 202 x10e3/uL (140-360); RED CELL DISTRIBUTION WIDTH 16.3 % (11.7-14.4)
[2021-10-20 06:35] LABS: ANION GAP 13.4 mmol/L (8-16); CALCIUM 8.3 mg/dL (8.4-10.2); CREATININE, SERUM 0.94 mg/dL (0.57-1.11); POTASSIUM 4.4 mmol/L (3.5-5.1)
[2021-10-20] MEDS ORDERED: CEFTRIAXONE 1 GM VIAL ONE (07:35)
[2021-10-20] MEDS ORDERED: SODIUM CHLORIDE 0.9% 50ML 50 ML ONE (07:36)
[2021-10-20] MEDS: ENOXAPARIN SOD INJ 60 MG/0.6 ML SYR SC SCH ×2 (08:00→21:00)
[2021-10-20] MEDS: METOPROLOL SUCCINATE 50 MG TAB XL PO SCH (08:00)
[2021-10-20] MEDS: CEFTRIAXONE 1 GM in SODIUM CHLORIDE 0.9% 50ML 50 ML IV SCH (08:00)
[2021-10-20] MEDS: NIFEDIPINE CR 30 MG TAB PO SCH (08:00)
[2021-10-20] MEDS: DEXAMETHASONE SOD PHOS 10 MG/1 ML VIAL IV SCH (08:00)
[2021-10-20] MEDS ORDERED: HYDRALAZINE HCL 20 MG/ML VIAL IV PRN (10:15)
[2021-10-20] MEDS ORDERED: ZIPRASIDONE 20 MG VIAL IM NR (10:15)
[2021-10-20] MEDS ORDERED: LORAZEPAM INJ 2 MG/ML VIAL IV PRN (12:45)
[2021-10-20] MEDS: REMDESIVIR 100MG 100 MG in SODIUM CHLORIDE 0.9% 100 ML IV SCH (15:55)
[2021-10-20] MEDS: AMIODARONE HCL 200 MG TAB PO SCH (20:00)
[2021-10-20] MEDS: METHYLPREDNISOLONE SOD SUCC 40 MG/ML VIAL 1ML IV SCH (21:00)
[2021-10-21] VITALS (24 sets, daily range): BP systolic 93–169; BP diastolic 57–140
[2021-10-21] MEDS: METHYLPREDNISOLONE SOD SUCC 40 MG/ML VIAL 1ML IV SCH (09:51)
[2021-10-21] MEDS: AMIODARONE HCL 200 MG TAB PO SCH ×2 (09:51→16:58)
[2021-10-21] MEDS: CEFTRIAXONE 1 GM in SODIUM CHLORIDE 0.9% 50ML 50 ML IV SCH (09:51)
[2021-10-21] MEDS: ENOXAPARIN SOD INJ 60 MG/0.6 ML SYR SC SCH ×2 (09:52→21:02)
[2021-10-21] MEDS: METOPROLOL SUCCINATE 50 MG TAB XL PO SCH (10:47)
[2021-10-21] MEDS: NIFEDIPINE CR 30 MG TAB PO SCH (10:47)
[2021-10-21] MEDS: QUETIAPINE FUMARATE 25 MG TAB PO SCH ×2 (14:00→21:02)
[2021-10-21] MEDS: REMDESIVIR 100MG 100 MG in SODIUM CHLORIDE 0.9% 100 ML IV SCH (14:47)
[2021-10-22] VITALS (15 sets, daily range): BP systolic 107–146; BP diastolic 51–80
[2021-10-22] MEDS: METHYLPREDNISOLONE SOD SUCC 40 MG/ML VIAL 1ML IV SCH (05:48)
[2021-10-22 05:54] LABS: HEMATOCRIT 33.6 % (34.2-44.1); HEMOGLOBIN 10.5 g/dL (12.0-16.0); LYMPHOCYTES # (AUTO) 0.3 (1.0-3.2); LYMPHOCYTES % 3.9 % (18.0-39.1); MEAN CORPUSCULAR HEMOGLOBIN 30.3 pg (28-32); MEAN CORPUSCULAR HGB CONC 31.3 g/dL (31-35); MEAN CORPUSCULAR VOLUME 97.1 fL (81-99); MONOCYTES # (AUTO) 0.9 (0.2-0.8); MONOCYTES % 10.4 % (4.4-11.3); NEUTROPHILS # (AUTO) 6.9 (2.1-6.9); NEUTROPHILS % 84.7 % (38.7-80.0); PLATELET COUNT 213 x10e3/uL (140-360); RED BLOOD COUNT 3.46 x10e6/uL (3.6-5.1); RED CELL DISTRIBUTION WIDTH 16.4 % (11.7-14.4)
[2021-10-22] MEDS: QUETIAPINE FUMARATE 25 MG TAB PO SCH ×4 (05:56→21:00)
[2021-10-22 06:39] LABS: ALBUMIN 2.9 g/dL (3.5-5.0); ANION GAP 15.2 mmol/L (8-16); CALCIUM 8.1 mg/dL (8.4-10.2); CREATININE, SERUM 1.21 mg/dL (0.57-1.11); POTASSIUM 4.2 mmol/L (3.5-5.1)
[2021-10-22] MEDS: CEFTRIAXONE 1 GM in SODIUM CHLORIDE 0.9% 50ML 50 ML IV SCH (08:53)
[2021-10-22] MEDS: AZITHROMYCIN 250 MG TAB PO SCH (09:24)
[2021-10-22] MEDS: NIFEDIPINE CR 30 MG TAB PO SCH (09:25)
[2021-10-22] MEDS: METOPROLOL SUCCINATE 50 MG TAB XL PO SCH (09:25)
[2021-10-22] MEDS: AMIODARONE HCL 200 MG TAB PO SCH ×2 (09:25→20:27)
[2021-10-22] MEDS: ENOXAPARIN SOD INJ 60 MG/0.6 ML SYR SC SCH ×2 (09:25→21:08)
[2021-10-22] MEDS: REMDESIVIR 100MG 100 MG in SODIUM CHLORIDE 0.9% 100 ML IV SCH (14:00)
[2021-10-22] MEDS ORDERED: REMDESIVIR 100MG 100 MG in SODIUM CHLORIDE 0.9% 100 ML IV SCH (16:30)
[2021-10-23] VITALS (7 sets, daily range): BP systolic 96–160; BP diastolic 69–87
[2021-10-23] MEDS: QUETIAPINE FUMARATE 25 MG TAB PO SCH ×3 (05:43→21:54)
[2021-10-23] MEDS: METHYLPREDNISOLONE SOD SUCC 40 MG/ML VIAL 1ML IV SCH (05:43)
[2021-10-23] MEDS: ENOXAPARIN SOD INJ 60 MG/0.6 ML SYR SC SCH ×2 (09:19→21:54)
[2021-10-23] MEDS: CEFTRIAXONE 1 GM in SODIUM CHLORIDE 0.9% 50ML 50 ML IV SCH (09:19)
[2021-10-23] MEDS: METOPROLOL SUCCINATE 50 MG TAB XL PO SCH (09:19)
[2021-10-23] MEDS: AZITHROMYCIN 250 MG TAB PO SCH (09:19)
[2021-10-23] MEDS: NIFEDIPINE CR 30 MG TAB PO SCH (09:19)
[2021-10-23] MEDS: AMIODARONE HCL 200 MG TAB PO SCH ×2 (09:19→17:14)
[2021-10-23] MEDS ORDERED: IOPAMIDOL 370 MG/ML 200 ML INFUS..BTL INJ ONE ×2 (17:24→21:36)
[2021-10-23] MEDS ORDERED: SODIUM CHLORIDE 0.9% 50ML 50 ML ONE ×2 (17:24→21:36)
[2021-10-24 01:48] VITALS: BP 169/78
[2021-10-24] MEDS: METHYLPREDNISOLONE SOD SUCC 40 MG/ML VIAL 1ML IV SCH (05:19)
[2021-10-24] MEDS: QUETIAPINE FUMARATE 25 MG TAB PO SCH ×3 (05:19→20:21)
[2021-10-24 06:18] VITALS: BP 167/93
[2021-10-24 08:08] VITALS: BP 167/93
[2021-10-24] MEDS: AMIODARONE HCL 200 MG TAB PO SCH ×2 (08:59→17:09)
[2021-10-24] MEDS: NIFEDIPINE CR 30 MG TAB PO SCH (09:00)
[2021-10-24] MEDS: METOPROLOL SUCCINATE 50 MG TAB XL PO SCH ×2 (09:00→17:09)
[2021-10-24] MEDS: ENOXAPARIN SOD INJ 60 MG/0.6 ML SYR SC SCH ×2 (09:00→20:21)
[2021-10-24] MEDS ORDERED: LACTATED RINGER'S 500 ML INJ ONE (12:15)
[2021-10-24 19:35] VITALS: BP 156/68
[2021-10-24] MEDS: GUAIFENESIN/CODEINE 5 ML LIQD PO PRN (20:25)
[2021-10-24 21:54] VITALS: BP 156/68
[2021-10-25 00:55] VITALS: BP 172/75
[2021-10-25] MEDS: QUETIAPINE FUMARATE 25 MG TAB PO SCH ×3 (05:08→22:32)
[2021-10-25 05:52] VITALS: BP 152/99
[2021-10-25] MEDS ORDERED: METHYLPREDNISOLONE SOD SUCC 40 MG/ML VIAL 1ML IV SCH (06:00)
[2021-10-25 06:11] LABS: BASOPHILS % 0.3 % (0.0-1.0); HEMATOCRIT 35.4 % (34.2-44.1); HEMOGLOBIN 11.6 g/dL (12.0-16.0); LYMPHOCYTES # (AUTO) 0.6 (1.0-3.2); LYMPHOCYTES % 5.9 % (18.0-39.1); MEAN CORPUSCULAR HEMOGLOBIN 30.3 pg (28-32); MEAN CORPUSCULAR HGB CONC 32.8 g/dL (31-35); MEAN CORPUSCULAR VOLUME 92.4 fL (81-99); MONOCYTES # (AUTO) 1.4 (0.2-0.8); MONOCYTES % 13.9 % (4.4-11.3); NEUTROPHILS % 72.2 % (38.7-80.0); PLATELET COUNT 269 x10e3/uL (140-360); RED BLOOD COUNT 3.83 x10e6/uL (3.6-5.1); RED CELL DISTRIBUTION WIDTH 15.9 % (11.7-14.4)
[2021-10-25 06:46] LABS: ALBUMIN 3.2 g/dL (3.5-5.0); ALBUMIN/GLOBULIN RATIO 1.1 (0.8-2.0); ANION GAP 9.7 mmol/L (8-16); CALCIUM 8.2 mg/dL (8.4-10.2); CREATININE, SERUM 0.9 mg/dL (0.57-1.11); POTASSIUM 4.7 mmol/L (3.5-5.1)
[2021-10-25] MEDS: PANTOPRAZOLE SOD 40 MG TABEC PO SCH (08:33)
[2021-10-25] MEDS: AMIODARONE HCL 200 MG TAB PO SCH ×2 (08:34→17:38)
[2021-10-25] MEDS: METOPROLOL SUCCINATE 50 MG TAB XL PO SCH ×2 (08:34→17:38)
[2021-10-25] MEDS: ENOXAPARIN SOD INJ 60 MG/0.6 ML SYR SC SCH (08:34)
[2021-10-25] MEDS: NIFEDIPINE CR 30 MG TAB PO SCH (08:34)
[2021-10-25 09:20] VITALS: BP 196/89
[2021-10-25] MEDS ORDERED: HYDRALAZINE HCL 25 MG TAB PO PRN (09:30)
[2021-10-25] MEDS ORDERED: LORAZEPAM INJ 2 MG/ML VIAL IV PRN (09:30)
[2021-10-25] MEDS ORDERED: NIFEDIPINE CR 30 MG TAB PO ONE (10:00)
[2021-10-25] MEDS: APIXABAN 5 MG TABLET PO SCH (17:38)
[2021-10-25] MEDS: GUAIFENESIN/CODEINE 5 ML LIQD PO PRN (19:13)
[2021-10-25 21:22] VITALS: BP 147/72
[2021-10-25 22:36] VITALS: BP 147/72
[2021-10-26] VITALS (9 sets, daily range): BP systolic 108–131; BP diastolic 60–86
[2021-10-26] MEDS: QUETIAPINE FUMARATE 25 MG TAB PO SCH ×3 (05:04→20:51)
[2021-10-26] MEDS: NIFEDIPINE CR 30 MG TAB PO SCH (05:04)
[2021-10-26] MEDS ORDERED: NIFEDIPINE CR 30 MG TAB PO SCH (06:00)
[2021-10-26] MEDS: PANTOPRAZOLE SOD 40 MG TABEC PO SCH (08:15)
[2021-10-26] MEDS: APIXABAN 5 MG TABLET PO SCH ×2 (09:00→17:13)
[2021-10-26] MEDS: AMIODARONE HCL 200 MG TAB PO SCH ×2 (09:00→17:13)
[2021-10-26] MEDS: PREDNISONE 20 MG TAB PO SCH (09:00)
[2021-10-26] MEDS: METOPROLOL SUCCINATE 50 MG TAB XL PO SCH ×2 (09:00→17:14)
[2021-10-26] MEDS: CLONIDINE HCL 0.2 MG/24 HR 1 EA PATCH TOP SCH (11:00)
[2021-10-26] MEDS: GUAIFENESIN/CODEINE 5 ML LIQD PO PRN (17:20)
[2021-10-27] VITALS (11 sets, daily range): BP systolic 107–144; BP diastolic 53–80
[2021-10-27] MEDS: QUETIAPINE FUMARATE 25 MG TAB PO SCH ×3 (06:00→21:22)
[2021-10-27] MEDS: NIFEDIPINE CR 30 MG TAB PO SCH (06:26)
[2021-10-27] MEDS: PANTOPRAZOLE SOD 40 MG TABEC PO SCH (08:00)
[2021-10-27] MEDS: METOPROLOL SUCCINATE 50 MG TAB XL PO SCH ×2 (09:30→17:17)
[2021-10-27] MEDS: PREDNISONE 20 MG TAB PO SCH (09:30)
[2021-10-27] MEDS: APIXABAN 5 MG TABLET PO SCH ×2 (09:30→17:16)
[2021-10-27] MEDS: AMIODARONE HCL 200 MG TAB PO SCH ×2 (09:30→17:16)
[2021-10-27] MEDS: GUAIFENESIN/CODEINE 5 ML LIQD PO PRN (21:19)
[2021-10-28] VITALS (7 sets, daily range): BP systolic 123–156; BP diastolic 57–70
[2021-10-28] MEDS: QUETIAPINE FUMARATE 25 MG TAB PO SCH ×3 (05:12→22:00)
[2021-10-28] MEDS: NIFEDIPINE CR 30 MG TAB PO SCH (05:30)
[2021-10-28] MEDS: GUAIFENESIN/CODEINE 5 ML LIQD PO PRN (06:00)
[2021-10-28] MEDS: PANTOPRAZOLE SOD 40 MG TABEC PO SCH (08:05)
[2021-10-28] MEDS: PREDNISONE 20 MG TAB PO SCH (09:12)
[2021-10-28] MEDS: APIXABAN 5 MG TABLET PO SCH ×2 (09:12→17:22)
[2021-10-28] MEDS: AMIODARONE HCL 200 MG TAB PO SCH ×2 (09:12→17:22)
[2021-10-28] MEDS: METOPROLOL SUCCINATE 50 MG TAB XL PO SCH ×2 (09:13→17:23)
[2021-10-28] MEDS ORDERED: GENTAMICIN 80MG/NS 100 ML 100 ML IV ONE (13:29)
[2021-10-29] VITALS (8 sets, daily range): BP systolic 101–158; BP diastolic 51–80
[2021-10-29] MEDS: QUETIAPINE FUMARATE 25 MG TAB PO SCH ×3 (06:00→19:56)
[2021-10-29] MEDS: NIFEDIPINE CR 30 MG TAB PO SCH (06:02)
[2021-10-29] MEDS: AMIODARONE HCL 200 MG TAB PO SCH ×2 (10:00→17:02)
[2021-10-29] MEDS: PANTOPRAZOLE SOD 40 MG TABEC PO SCH (10:00)
[2021-10-29] MEDS: APIXABAN 5 MG TABLET PO SCH ×2 (10:00→17:02)
[2021-10-29] MEDS: METOPROLOL SUCCINATE 50 MG TAB XL PO SCH ×2 (10:00→17:02)
[2021-10-29] MEDS: PREDNISONE 20 MG TAB PO SCH (10:00)
[2021-10-30] VITALS (8 sets, daily range): BP systolic 120–159; BP diastolic 54–73
[2021-10-30] MEDS: NIFEDIPINE CR 30 MG TAB PO SCH (06:05)
[2021-10-30 06:18] LABS: ALBUMIN 2.5 g/dL (3.5-5.0); ANION GAP 12.2 mmol/L (8-16); CALCIUM 7.9 mg/dL (8.4-10.2); CREATININE, SERUM 1.28 mg/dL (0.57-1.11); POTASSIUM 4.2 mmol/L (3.5-5.1)
[2021-10-30 06:46] LABS: BASOPHILS % 0.2 % (0.0-1.0); EOSINOPHILS % 0.2 % (0.0-6.0); HEMATOCRIT 26.1 % (34.2-44.1); LYMPHOCYTES # (AUTO) 0.8 (1.0-3.2); LYMPHOCYTES % 4.5 % (18.0-39.1); MEAN CORPUSCULAR HEMOGLOBIN 30.4 pg (28-32); MEAN CORPUSCULAR HGB CONC 30.7 g/dL (31-35); MEAN CORPUSCULAR VOLUME 99.2 fL (81-99); MONOCYTES # (AUTO) 1.8 (0.2-0.8); MONOCYTES % 10.6 % (4.4-11.3); NEUTROPHILS # (AUTO) 13.2 (2.1-6.9); PLATELET COUNT 199 x10e3/uL (140-360); RED BLOOD COUNT 2.63 x10e6/uL (3.6-5.1); RED CELL DISTRIBUTION WIDTH 16.1 % (11.7-14.4)
[2021-10-30] MEDS: APIXABAN 5 MG TABLET PO SCH ×2 (08:56→16:05)
[2021-10-30] MEDS: AMIODARONE HCL 200 MG TAB PO SCH (08:56)
[2021-10-30] MEDS: PANTOPRAZOLE SOD 40 MG TABEC PO SCH (08:56)
[2021-10-30] MEDS: PREDNISONE 10 MG TAB PO SCH (08:56)
[2021-10-30] MEDS ORDERED: CEFTRIAXONE 1 GM in SODIUM CHLORIDE 0.9% 50ML 50 ML IV SCH (09:00)
[2021-10-30] MEDS ORDERED: SODIUM CHLORIDE 0.9% 250ML 250 ML ONE (09:16)
[2021-10-30] MEDS: QUETIAPINE FUMARATE 25 MG TAB PO SCH (13:25)
[2021-10-30] MEDS ORDERED: LACTATED RINGER'S 500 ML INJ ONE (13:30)
[2021-10-31] VITALS (11 sets, daily range): BP systolic 104–171; BP diastolic 55–94
[2021-10-31 05:08] LABS: BASOPHILS % 0.3 % (0.0-1.0); EOSINOPHILS # (AUTO) 0.1 (0.0-0.4); EOSINOPHILS % 0.9 % (0.0-6.0); HEMATOCRIT 29.1 % (34.2-44.1); HEMOGLOBIN 9.1 g/dL (12.0-16.0); LYMPHOCYTES # (AUTO) 0.6 (1.0-3.2); LYMPHOCYTES % 3.9 % (18.0-39.1); MEAN CORPUSCULAR HEMOGLOBIN 30.4 pg (28-32); MEAN CORPUSCULAR HGB CONC 31.3 g/dL (31-35); MEAN CORPUSCULAR VOLUME 97.3 fL (81-99); MONOCYTES # (AUTO) 1.9 (0.2-0.8); MONOCYTES % 13.1 % (4.4-11.3); NEUTROPHILS # (AUTO) 11.4 (2.1-6.9); NEUTROPHILS % 77.3 % (38.7-80.0); PLATELET COUNT 200 x10e3/uL (140-360); RED BLOOD COUNT 2.99 x10e6/uL (3.6-5.1)
[2021-10-31 05:31] LABS: ALBUMIN 2.5 g/dL (3.5-5.0); ALBUMIN/GLOBULIN RATIO 0.9 (0.8-2.0); ANION GAP 12.3 mmol/L (8-16); CALCIUM 7.9 mg/dL (8.4-10.2); CREATININE, SERUM 1.16 mg/dL (0.57-1.11); POTASSIUM 4.3 mmol/L (3.5-5.1)
[2021-10-31] MEDS: NIFEDIPINE CR 30 MG TAB PO SCH (06:58)
[2021-10-31] MEDS: APIXABAN 5 MG TABLET PO SCH ×2 (09:39→16:19)
[2021-10-31] MEDS: PREDNISONE 10 MG TAB PO SCH (09:39)
[2021-10-31] MEDS: AMIODARONE HCL 200 MG TAB PO SCH (09:39)
[2021-10-31] MEDS: PANTOPRAZOLE SOD 40 MG TABEC PO SCH (09:39)
[2021-10-31] MEDS: METOPROLOL SUCCINATE 25 MG TAB XL PO SCH (09:40)
[2021-10-31] MEDS: Aztreonam 1 GM in SODIUM CHLORIDE 0.9% 50ML 50 ML IV SCH ×2 (09:52→21:02)
[2021-11-01] VITALS (12 sets, daily range): BP systolic 116–188; BP diastolic 52–84
[2021-11-01] MEDS: NIFEDIPINE CR 30 MG TAB PO SCH (05:18)
[2021-11-01] MEDS: Aztreonam 1 GM in SODIUM CHLORIDE 0.9% 50ML 50 ML IV SCH ×2 (09:19→22:15)
[2021-11-01] MEDS: PREDNISONE 10 MG TAB PO SCH (09:19)
[2021-11-01] MEDS: METOPROLOL SUCCINATE 25 MG TAB XL PO SCH (09:19)
[2021-11-01] MEDS: APIXABAN 5 MG TABLET PO SCH ×2 (09:19→18:38)
[2021-11-01] MEDS: AMIODARONE HCL 200 MG TAB PO SCH (09:19)
[2021-11-01] MEDS: PANTOPRAZOLE SOD 40 MG TABEC PO SCH (09:19)
[2021-11-01 10:35] LABS: BASOPHILS # (AUTO) 0.1 (0.0-0.1); BASOPHILS % 0.4 % (0.0-1.0); EOSINOPHILS # (AUTO) 0.1 (0.0-0.4); EOSINOPHILS % 0.9 % (0.0-6.0); HEMATOCRIT 30.3 % (34.2-44.1); HEMOGLOBIN 9.5 g/dL (12.0-16.0); LYMPHOCYTES # (AUTO) 0.6 (1.0-3.2); LYMPHOCYTES % 3.4 % (18.0-39.1); MEAN CORPUSCULAR HEMOGLOBIN 30.8 pg (28-32); MEAN CORPUSCULAR HGB CONC 31.4 g/dL (31-35); MEAN CORPUSCULAR VOLUME 98.4 fL (81-99); MONOCYTES # (AUTO) 2.4 (0.2-0.8); MONOCYTES % 14.6 % (4.4-11.3); NEUTROPHILS # (AUTO) 12.6 (2.1-6.9); NEUTROPHILS % 76.9 % (38.7-80.0); PLATELET COUNT 205 x10e3/uL (140-360); RED BLOOD COUNT 3.08 x10e6/uL (3.6-5.1); RED CELL DISTRIBUTION WIDTH 16.2 % (11.7-14.4)
[2021-11-02] VITALS (9 sets, daily range): BP systolic 118–157; BP diastolic 49–81
[2021-11-02] MEDS: NIFEDIPINE CR 30 MG TAB PO SCH (05:48)
[2021-11-02 06:29] LABS: BASOPHILS % 0.1 % (0.0-1.0); EOSINOPHILS # (AUTO) 0.1 (0.0-0.4); EOSINOPHILS % 1.2 % (0.0-6.0); HEMATOCRIT 25.8 % (34.2-44.1); HEMOGLOBIN 8.4 g/dL (12.0-16.0); LYMPHOCYTES # (AUTO) 0.7 (1.0-3.2); LYMPHOCYTES % 6.1 % (18.0-39.1); MEAN CORPUSCULAR HEMOGLOBIN 31.2 pg (28-32); MEAN CORPUSCULAR HGB CONC 32.6 g/dL (31-35); MEAN CORPUSCULAR VOLUME 95.9 fL (81-99); MONOCYTES # (AUTO) 1.6 (0.2-0.8); MONOCYTES % 14.3 % (4.4-11.3); NEUTROPHILS # (AUTO) 8.5 (2.1-6.9); NEUTROPHILS % 76.2 % (38.7-80.0); PLATELET COUNT 186 x10e3/uL (140-360); RED BLOOD COUNT 2.69 x10e6/uL (3.6-5.1); RED CELL DISTRIBUTION WIDTH 16.1 % (11.7-14.4)
[2021-11-02 07:03] LABS: ANION GAP 13.2 mmol/L (8-16); CALCIUM 7.8 mg/dL (8.4-10.2); CREATININE, SERUM 0.85 mg/dL (0.57-1.11); POTASSIUM 4.2 mmol/L (3.5-5.1)
[2021-11-02] MEDS: METOPROLOL SUCCINATE 25 MG TAB XL PO SCH (09:52)
[2021-11-02] MEDS: AMIODARONE HCL 200 MG TAB PO SCH (09:52)
[2021-11-02] MEDS: APIXABAN 5 MG TABLET PO SCH ×2 (09:52→17:21)
[2021-11-02] MEDS: PANTOPRAZOLE SOD 40 MG TABEC PO SCH (09:52)
[2021-11-02] MEDS: Aztreonam 1 GM in SODIUM CHLORIDE 0.9% 50ML 50 ML IV SCH ×2 (09:52→21:23)
[2021-11-02] MEDS: PREDNISONE 10 MG TAB PO SCH (09:52)
[2021-11-02] MEDS ORDERED: ACETAMINOPHEN 325 MG TAB PO PRN (15:15)
[2021-11-03] VITALS (8 sets, daily range): BP systolic 118–167; BP diastolic 50–65
[2021-11-03] MEDS: NIFEDIPINE CR 30 MG TAB PO SCH (05:17)
[2021-11-03] MEDS: METOPROLOL SUCCINATE 25 MG TAB XL PO SCH (08:16)
[2021-11-03] MEDS: PANTOPRAZOLE SOD 40 MG TABEC PO SCH (08:16)
[2021-11-03] MEDS: AMIODARONE HCL 200 MG TAB PO SCH (08:16)
[2021-11-03] MEDS: PREDNISONE 10 MG TAB PO SCH (08:16)
[2021-11-03] MEDS: APIXABAN 5 MG TABLET PO SCH ×2 (08:16→17:39)
[2021-11-03] MEDS: Aztreonam 1 GM in SODIUM CHLORIDE 0.9% 50ML 50 ML IV SCH (10:05)
[2021-11-04 00:47] VITALS: BP 140/62
[2021-11-04 04:00] VITALS: BP 166/64
[2021-11-04] MEDS: NIFEDIPINE CR 30 MG TAB PO SCH (05:35)
[2021-11-04 05:56] LABS: BASOPHILS % 0.2 % (0.0-1.0); EOSINOPHILS # (AUTO) 0.1 (0.0-0.4); EOSINOPHILS % 1.3 % (0.0-6.0); HEMATOCRIT 25.8 % (34.2-44.1); LYMPHOCYTES # (AUTO) 0.7 (1.0-3.2); LYMPHOCYTES % 6.9 % (18.0-39.1); MEAN CORPUSCULAR HEMOGLOBIN 30.9 pg (28-32); MEAN CORPUSCULAR VOLUME 99.6 fL (81-99); MONOCYTES # (AUTO) 0.9 (0.2-0.8); MONOCYTES % 9.3 % (4.4-11.3); NEUTROPHILS # (AUTO) 8.2 (2.1-6.9); NEUTROPHILS % 81.2 % (38.7-80.0); PLATELET COUNT 199 x10e3/uL (140-360); RED BLOOD COUNT 2.59 x10e6/uL (3.6-5.1)
[2021-11-04] MEDS: PANTOPRAZOLE SOD 40 MG TABEC PO SCH (07:30)
[2021-11-04 08:10] VITALS: BP 136/69
[2021-11-04 08:20] LABS: ANION GAP 14.2 mmol/L (8-16); CALCIUM 8.2 mg/dL (8.4-10.2); CREATININE, SERUM 0.85 mg/dL (0.57-1.11); POTASSIUM 4.2 mmol/L (3.5-5.1)
[2021-11-04 08:41] VITALS: BP 136/69
[2021-11-04] MEDS: AMIODARONE HCL 200 MG TAB PO SCH (08:51)
[2021-11-04] MEDS: APIXABAN 5 MG TABLET PO SCH (08:52)
[2021-11-04] MEDS: METOPROLOL SUCCINATE 25 MG TAB XL PO SCH (08:52)
[2021-11-04] MEDS: PREDNISONE 10 MG TAB PO SCH (08:52)
[2021-11-04] MEDS ORDERED: MEDROL4 MG/DOSE- PO (10:24)
[2021-11-04] MEDS ORDERED: HEMOCYTE PLUS1 EACH PO (10:25)
[2021-11-04] MEDS ORDERED: AMIODARONE HCL200 MG PO (10:26)
[2021-11-04] MEDS ORDERED: COLACE100 MG PO (10:26)
[2021-11-04] MEDS ORDERED: BREZTRI AEROS10.7 GM (10:28)
[2021-11-04] MEDS ORDERED: COMBIVENT RESPIM4 GM IH (10:32)
[2021-11-04] MEDS ORDERED: TESSALON PEARLS PO (10:36)
[2021-11-04 12:17] VITALS: BP 114/96
== END 2021-11-04 15:02 | disposition home health service (06) | DRG 177 ==
LOC: ER 12:47 → ERHOLD 14:49 → IMCU 20:52
PROVIDERS: ADMIT Internal Medicine; ATTEND Internal Medicine
PROC: 02HV33Z Insertion of Infusion Device into Superior Vena Cava, Percutaneous Approach (ICD-10-PCS; principal; 2021-10-17)
PROC: 8E0ZXY6 Isolation (ICD-10-PCS; 2021-10-17)
PROC: 3E0433Z Introduction of Anti-inflammatory into Central Vein, Percutaneous Approach (ICD-10-PCS; 2021-10-17)
PROC: 5A09457 Assistance with Respiratory Ventilation, 24-96 Consecutive Hours, Continuous Positive Airway Pressure (ICD-10-PCS; 2021-10-17)
PROC: XW043E5 Introduction of Remdesivir Anti-infective into Central Vein, Percutaneous Approach, New Technology Group 5 (ICD-10-PCS; 2021-10-18)
DX: U07.1 COVID-19 (principal); J12.82 Pneumonia due to coronavirus disease 2019; J96.01 Acute respiratory failure with hypoxia; I50.33 Acute on chronic diastolic (congestive) heart failure; G93.41 Metabolic encephalopathy; J15.9 Unspecified bacterial pneumonia; N17.9 Acute kidney failure, unspecified; E87.2 Acidosis; N39.0 Urinary tract infection, site not specified; I48.0 Paroxysmal atrial fibrillation; I11.0 Hypertensive heart disease with heart failure; J44.9 Chronic obstructive pulmonary disease, unspecified; M24.411 Recurrent dislocation, right shoulder; R53.81 Other malaise; J84.10 Pulmonary fibrosis, unspecified; D50.0 Iron deficiency anemia secondary to blood loss (chronic); Z91.19 Patient's noncompliance with other medical treatment and regimen; Z99.81 Dependence on supplemental oxygen; Z88.1 Allergy status to other antibiotic agents; Z88.8 Allergy status to other drugs, medicaments and biological substances; I16.0 Hypertensive urgency
CPT/HCPCS: 36415; 36569; 71045; 71260; 80048; 80053; 81001; 82550; 82553; 82728; 82948; 83605; 83880; 84484; 85025; 85610; 85730; 86141; 87040; 87086; 93005; 93306; 94660; 94799; 96361; 97139; 99251; 99285; J0248; J0360; J0456; J0696; J1100; J1580; J1650; J2060; J2920; J3486; J7030; J7050; J7121; J7512; Q9967; U0002

== ENCOUNTER 2022-08-15 19:00 | Emergency (ER) | payer OTHER ==
[~2022-08-15] VITALS: Ht 160 cm; Wt 55.3 kg
[~2022-08-15 19:00] MED LIST changes: +AMIODARONE HCL200 MG PO; +BENICAR20 MG PO; +BREZTRI AEROS10.7 GM; +COLACE100 MG PO; +COMBIVENT RESPIM4 GM IH; +HEMOCYTE PLUS1 EACH PO; +MEDROL4 MG/DOSE- PO; +NIFEDIPINE ER30 M1 PO; +TESSALON PEARLS PO
[2022-08-15] MEDS ORDERED: AZITHROMYCIN250 MG PO (19:55)
[2022-08-15] MEDS ORDERED: MEDROL4 M2 PO (19:55)
== END 2022-08-15 21:45 | disposition home or self-care (01) ==
LOC: ER 20:04
DX: R50.9 Fever, unspecified (principal); J44.9 Chronic obstructive pulmonary disease, unspecified; I10 Essential (primary) hypertension; I50.9 Heart failure, unspecified; I48.91 Unspecified atrial fibrillation; D64.9 Anemia, unspecified
CPT/HCPCS: 71045; 99283

== ENCOUNTER 2022-08-20 12:42 | Inpatient (IN) | payer OTHER ==
[~2022-08-20] VITALS: Ht 160 cm; Wt 55.3 kg
[~2022-08-20 12:42] MED LIST changes: +AZITHROMYCIN250 MG PO; +MEDROL4 M2 PO
[2022-08-20] MEDS ORDERED: ALBUTEROL/IPRATROPIUM 3 ML NEB NEB ONE (13:30)
[2022-08-20 13:51] LABS: BASOPHILS % 0.1 % (0.0-1.0); HEMATOCRIT 29.8 % (34.2-44.1); HEMOGLOBIN 9.2 g/dL (12.0-16.0); LYMPHOCYTES # (AUTO) 0.3 (1.0-3.2); LYMPHOCYTES % 1.7 % (18.0-39.1); MEAN CORPUSCULAR HEMOGLOBIN 32.3 pg (28-32); MEAN CORPUSCULAR HGB CONC 30.9 g/dL (31-35); MEAN CORPUSCULAR VOLUME 104.6 fL (81-99); MONOCYTES % 6.5 % (4.4-11.3); NEUTROPHILS # (AUTO) 14.3 (2.1-6.9); NEUTROPHILS % 90.6 % (38.7-80.0); PLATELET COUNT 478 x10e3/uL (140-360); RED BLOOD COUNT 2.85 x10e6/uL (3.6-5.1); RED CELL DISTRIBUTION WIDTH 13.2 % (11.7-14.4)
[2022-08-20 14:03] LABS: ALBUMIN 2.9 g/dL (3.5-5.0); ALBUMIN/GLOBULIN RATIO 0.6 (0.8-2.0); ANION GAP 17.5 mmol/L (8-16); CALCIUM 8.9 mg/dL (8.4-10.2); CREATININE, SERUM 1.74 mg/dL (0.57-1.11); POTASSIUM 4.5 mmol/L (3.5-5.1)
[2022-08-20 14:09] LABS: CREATINE KINASE MB 2.3 ng/mL (0-5.0)
[2022-08-20 14:27] LABS: CLARITY,URINE CLEAR (CLEAR); COLOR,URINE YELLOW (YELLOW); KETONES,URINE NEGATIVE (NEGATIVE); LEUKOCYTE ESTERASE ,URINE NEGATIVE (NEGATIVE); NITRITE,URINE NEGATIVE (NEGATIVE); PROTEIN,URINE DIPSTICK NEGATIVE (NEGATIVE); URINE UROBILINOGEN 0.2 mg/dL (0.2 - 1)
[2022-08-20] MEDS ORDERED: ONDANSETRON HCL INJ 2MG/ML 2ML 2 MG/ML VIAL IV PRN (17:30)
[2022-08-20] MEDS ORDERED: SODIUM CHLORIDE FLUSH 10 ML SYR INJ PRN (17:30)
[2022-08-20] MEDS ORDERED: LEVOFLOXACIN 250MG/D5W 50ML 50 ML IV SCH (18:30)
[2022-08-20] MEDS ORDERED: LABETALOL HCL 5 MG/ML 20ML VIAL IV STA (19:26)
[2022-08-20 20:38] VITALS: BP 215/76
[2022-08-20] MEDS ORDERED: SODIUM CHLORIDE 0.9% 250ML 0 ML ONE (20:38)
[2022-08-20 21:00] VITALS: BP 172/65
[2022-08-20] MEDS ORDERED: ALBUTEROL (22:58)
[2022-08-21] VITALS (7 sets, daily range): BP systolic 95–163; BP diastolic 50–95
[2022-08-21] MEDS ORDERED: HYDRALAZINE HCL 20 MG/ML VIAL IV PRN (00:15)
[2022-08-21] MEDS: ALBUTEROL/IPRATROPIUM 3 ML NEB NEB PRN ×2 (00:50→19:38)
[2022-08-21 01:21] LABS: CREATINE KINASE MB 2.1 ng/mL (0-5.0)
[2022-08-21 05:59] LABS: BASOPHILS % 0.2 % (0.0-1.0); EOSINOPHILS % 0.1 % (0.0-6.0); HEMATOCRIT 29.5 % (34.2-44.1); HEMOGLOBIN 9.2 g/dL (12.0-16.0); LYMPHOCYTES # (AUTO) 0.3 (1.0-3.2); LYMPHOCYTES % 1.5 % (18.0-39.1); MEAN CORPUSCULAR HEMOGLOBIN 33.7 pg (28-32); MEAN CORPUSCULAR HGB CONC 31.2 g/dL (31-35); MEAN CORPUSCULAR VOLUME 108.1 fL (81-99); MONOCYTES # (AUTO) 2.1 (0.2-0.8); NEUTROPHILS # (AUTO) 16.4 (2.1-6.9); PLATELET COUNT 399 x10e3/uL (140-360); RED BLOOD COUNT 2.73 x10e6/uL (3.6-5.1); RED CELL DISTRIBUTION WIDTH 13.4 % (11.7-14.4)
[2022-08-21 06:28] LABS: ALBUMIN 2.6 g/dL (3.5-5.0); ALBUMIN/GLOBULIN RATIO 0.7 (0.8-2.0); ANION GAP 18.4 mmol/L (8-16); CALCIUM 8.5 mg/dL (8.4-10.2); CREATININE, SERUM 1.47 mg/dL (0.57-1.11); POTASSIUM 4.4 mmol/L (3.5-5.1)
[2022-08-21 06:48] LABS: CREATINE KINASE MB 1.7 ng/mL (0-5.0)
[2022-08-21] MEDS: ATORVASTATIN 20 MG TAB PO SCH (09:57)
[2022-08-21] MEDS: FUROSEMIDE 40 MG TAB PO SCH (09:57)
[2022-08-21] MEDS: OLMESARTAN 20 MG TAB PO SCH (09:57)
[2022-08-21] MEDS: PANTOPRAZOLE SOD 40 MG TABEC PO SCH (09:57)
[2022-08-21] MEDS: APIXAB 2.5 MG TABLET PO SCH ×2 (09:57→17:20)
[2022-08-21] MEDS: METOPROLOL SUCCINATE 25 MG TAB XL PO SCH (09:58)
[2022-08-21] MEDS: NIFEDIPINE CR 30 MG TAB PO SCH (09:58)
[2022-08-21] MEDS ORDERED: SODIUM CHLORIDE 0.9% 250ML 500 ML ONE (17:21)
[2022-08-22] VITALS (7 sets, daily range): BP systolic 98–156; BP diastolic 52–79
[2022-08-22 07:00] LABS: BASOPHILS % 0.2 % (0.0-1.0); EOSINOPHILS # (AUTO) 0.1 (0.0-0.4); EOSINOPHILS % 0.4 % (0.0-6.0); HEMATOCRIT 29.8 % (34.2-44.1); HEMOGLOBIN 9.3 g/dL (12.0-16.0); LYMPHOCYTES # (AUTO) 0.4 (1.0-3.2); LYMPHOCYTES % 2.3 % (18.0-39.1); MEAN CORPUSCULAR HEMOGLOBIN 32.6 pg (28-32); MEAN CORPUSCULAR HGB CONC 31.2 g/dL (31-35); MEAN CORPUSCULAR VOLUME 104.6 fL (81-99); MONOCYTES # (AUTO) 1.1 (0.2-0.8); MONOCYTES % 6.4 % (4.4-11.3); NEUTROPHILS # (AUTO) 14.7 (2.1-6.9); NEUTROPHILS % 89.2 % (38.7-80.0); PLATELET COUNT 416 x10e3/uL (140-360); RED BLOOD COUNT 2.85 x10e6/uL (3.6-5.1); RED CELL DISTRIBUTION WIDTH 13.1 % (11.7-14.4)
[2022-08-22 07:20] LABS: ALBUMIN 2.6 g/dL (3.5-5.0); ALBUMIN/GLOBULIN RATIO 0.6 (0.8-2.0); ANION GAP 16.9 mmol/L (8-16); CALCIUM 8.7 mg/dL (8.4-10.2); CREATININE, SERUM 1.32 mg/dL (0.57-1.11); POTASSIUM 3.9 mmol/L (3.5-5.1)
[2022-08-22] MEDS: METOPROLOL SUCCINATE 25 MG TAB XL PO SCH (08:46)
[2022-08-22] MEDS: OLMESARTAN 20 MG TAB PO SCH (08:46)
[2022-08-22] MEDS: ATORVASTATIN 20 MG TAB PO SCH (08:46)
[2022-08-22] MEDS: NIFEDIPINE CR 30 MG TAB PO SCH (08:47)
[2022-08-22] MEDS: PANTOPRAZOLE SOD 40 MG TABEC PO SCH (08:47)
[2022-08-22] MEDS: APIXAB 2.5 MG TABLET PO SCH ×2 (08:47→15:57)
[2022-08-22] MEDS: FUROSEMIDE 40 MG TAB PO SCH (08:48)
[2022-08-22] MEDS ORDERED: ONDANSETRON HCL 4 MG ORAL DISINTEGRATING TAB PO PRN (11:15)
[2022-08-22] MEDS ORDERED: REMDESIVIR 100MG 200 MG in SODIUM CHLORIDE 0.9% 100 ML IV ONE (13:45)
[2022-08-22] MEDS: DEXAMETHASONE 4 MG TAB PO SCH (15:57)
[2022-08-22] MEDS ORDERED: SODIUM CHLORIDE 0.9% 250ML 250 ML ONE (16:25)
[2022-08-23] VITALS (8 sets, daily range): BP systolic 98–135; BP diastolic 53–66
[2022-08-23] MEDS: DEXAMETHASONE 4 MG TAB PO SCH (05:21)
[2022-08-23] MEDS: FUROSEMIDE INJ 10 MG/ML 4 ML VIAL IV SCH (08:01)
[2022-08-23] MEDS: PANTOPRAZOLE SOD 40 MG TABEC PO SCH (08:01)
[2022-08-23] MEDS: OLMESARTAN 20 MG TAB PO SCH (08:01)
[2022-08-23] MEDS: NIFEDIPINE CR 30 MG TAB PO SCH (08:01)
[2022-08-23] MEDS: METOPROLOL SUCCINATE 25 MG TAB XL PO SCH (08:01)
[2022-08-23] MEDS: ATORVASTATIN 20 MG TAB PO SCH (08:02)
[2022-08-23] MEDS: APIXAB 2.5 MG TABLET PO SCH ×2 (08:02→17:05)
[2022-08-23] MEDS: REMDESIVIR 100MG 100 MG in SODIUM CHLORIDE 0.9% 100 ML IV SCH (11:27)
[2022-08-23 16:43] LABS: ANION GAP 19.4 mmol/L (8-16); CALCIUM 8.5 mg/dL (8.4-10.2); CREATININE, SERUM 1.42 mg/dL (0.57-1.11); POTASSIUM 4.4 mmol/L (3.5-5.1)
[2022-08-23] MEDS ORDERED: SODIUM CHLORIDE 0.9% 250ML 250 ML ONE (17:14)
[2022-08-23] MEDS: ALBUTEROL/IPRATROPIUM 3 ML NEB NEB PRN (20:40)
[2022-08-24] VITALS (9 sets, daily range): BP systolic 80–131; BP diastolic 42–76
[2022-08-24] MEDS: ASCORBIC ACID 500 MG TAB PO SCH ×4 (05:43→17:39)
[2022-08-24] MEDS: DEXAMETHASONE 4 MG TAB PO SCH (05:44)
[2022-08-24] MEDS: ZINC SULFATE 50 MG CAP PO SCH ×3 (05:44→17:18)
[2022-08-24 06:12] LABS: BASOPHILS % 0.2 % (0.0-1.0); HEMOGLOBIN 8.8 g/dL (12.0-16.0); LYMPHOCYTES # (AUTO) 0.2 (1.0-3.2); LYMPHOCYTES % 1.3 % (18.0-39.1); MEAN CORPUSCULAR HGB CONC 33.8 g/dL (31-35); MEAN CORPUSCULAR VOLUME 97.4 fL (81-99); MONOCYTES % 6.3 % (4.4-11.3); NEUTROPHILS # (AUTO) 14.6 (2.1-6.9); NEUTROPHILS % 91.3 % (38.7-80.0); PLATELET COUNT 472 x10e3/uL (140-360); RED BLOOD COUNT 2.67 x10e6/uL (3.6-5.1); RED CELL DISTRIBUTION WIDTH 13.1 % (11.7-14.4)
[2022-08-24 06:32] LABS: ANION GAP 15.2 mmol/L (8-16); CALCIUM 8.2 mg/dL (8.4-10.2); CREATININE, SERUM 1.47 mg/dL (0.57-1.11); POTASSIUM 4.2 mmol/L (3.5-5.1)
[2022-08-24] MEDS: NIFEDIPINE CR 30 MG TAB PO SCH (08:11)
[2022-08-24] MEDS: METOPROLOL SUCCINATE 25 MG TAB XL PO SCH (08:11)
[2022-08-24] MEDS: CHOLECALCIFEROL 400 UNIT TAB PO SCH (08:11)
[2022-08-24] MEDS: PANTOPRAZOLE SOD 40 MG TABEC PO SCH (08:11)
[2022-08-24] MEDS: FUROSEMIDE INJ 10 MG/ML 4 ML VIAL IV SCH (08:11)
[2022-08-24] MEDS: APIXAB 2.5 MG TABLET PO SCH ×2 (08:12→17:18)
[2022-08-24] MEDS: OLMESARTAN 20 MG TAB PO SCH (08:12)
[2022-08-24] MEDS: ATORVASTATIN 20 MG TAB PO SCH (08:12)
[2022-08-24] MEDS: REMDESIVIR 100MG 100 MG in SODIUM CHLORIDE 0.9% 100 ML IV SCH (11:44)
[2022-08-24] MEDS ORDERED: TRAMADOL HCL 50 MG TAB PO PRN (14:15)
[2022-08-24] MEDS ORDERED: ACETAMINOPHEN/CODEINE 300MG - 30MG TAB PO PRN (14:15)
[2022-08-24] MEDS ORDERED: ACETAMINOPHEN 325 MG TAB PO PRN (14:15)
[2022-08-25] VITALS (8 sets, daily range): BP systolic 118–187; BP diastolic 42–67
[2022-08-25] MEDS: DEXAMETHASONE 4 MG TAB PO SCH (05:55)
[2022-08-25] MEDS: FUROSEMIDE INJ 10 MG/ML 4 ML VIAL IV SCH (08:51)
[2022-08-25] MEDS: PANTOPRAZOLE SOD 40 MG TABEC PO SCH (08:51)
[2022-08-25] MEDS: OLMESARTAN 20 MG TAB PO SCH (08:51)
[2022-08-25] MEDS: NIFEDIPINE CR 30 MG TAB PO SCH ×2 (08:52→09:00)
[2022-08-25] MEDS: APIXAB 2.5 MG TABLET PO SCH ×2 (08:52→15:05)
[2022-08-25] MEDS: ATORVASTATIN 20 MG TAB PO SCH (08:52)
[2022-08-25] MEDS: ZINC SULFATE 50 MG CAP PO SCH ×2 (08:53→15:05)
[2022-08-25] MEDS: ASCORBIC ACID 500 MG TAB PO SCH ×2 (08:53→15:05)
[2022-08-25] MEDS: CHOLECALCIFEROL 400 UNIT TAB PO SCH (08:53)
[2022-08-25] MEDS: METOPROLOL SUCCINATE 25 MG TAB XL PO SCH (09:00)
[2022-08-25] MEDS ORDERED: SODIUM CHLORIDE 0.9% 250ML 250 ML ONE (11:47)
[2022-08-25] MEDS: REMDESIVIR 100MG 100 MG in SODIUM CHLORIDE 0.9% 100 ML IV SCH (12:00)
[2022-08-26] VITALS: BP 125/75
[2022-08-26 04:00] VITALS: BP 100/44
[2022-08-26] MEDS: DEXAMETHASONE 4 MG TAB PO SCH (05:30)
[2022-08-26 05:44] LABS: BASOPHILS % 0.1 % (0.0-1.0); HEMATOCRIT 23.5 % (34.2-44.1); HEMOGLOBIN 7.4 g/dL (12.0-16.0); LYMPHOCYTES # (AUTO) 0.3 (1.0-3.2); LYMPHOCYTES % 2.2 % (18.0-39.1); MEAN CORPUSCULAR HEMOGLOBIN 32.3 pg (28-32); MEAN CORPUSCULAR HGB CONC 31.5 g/dL (31-35); MEAN CORPUSCULAR VOLUME 102.6 fL (81-99); MONOCYTES # (AUTO) 0.7 (0.2-0.8); MONOCYTES % 6.1 % (4.4-11.3); NEUTROPHILS # (AUTO) 10.8 (2.1-6.9); NEUTROPHILS % 90.3 % (38.7-80.0); PLATELET COUNT 392 x10e3/uL (140-360); RED BLOOD COUNT 2.29 x10e6/uL (3.6-5.1); RED CELL DISTRIBUTION WIDTH 13.4 % (11.7-14.4)
[2022-08-26 06:10] LABS: ANION GAP 14.3 mmol/L (8-16); CALCIUM 7.7 mg/dL (8.4-10.2); CREATININE, SERUM 1.87 mg/dL (0.57-1.11); PHOSPHORUS 4.1 MG/DL (2.3-4.7); POTASSIUM 4.3 mmol/L (3.5-5.1)
[2022-08-26 08:30] VITALS: BP 154/53
[2022-08-26 08:55] VITALS: BP 154/53
[2022-08-26] MEDS: PANTOPRAZOLE SOD 40 MG TABEC PO SCH (09:04)
[2022-08-26] MEDS: ATORVASTATIN 20 MG TAB PO SCH (09:06)
[2022-08-26] MEDS: FUROSEMIDE INJ 10 MG/ML 4 ML VIAL IV SCH (09:06)
[2022-08-26] MEDS: OLMESARTAN 20 MG TAB PO SCH (09:06)
[2022-08-26] MEDS: APIXAB 2.5 MG TABLET PO SCH ×2 (09:06→17:55)
[2022-08-26] MEDS: ZINC SULFATE 50 MG CAP PO SCH ×2 (09:07→17:55)
[2022-08-26] MEDS: ASCORBIC ACID 500 MG TAB PO SCH ×2 (09:07→17:55)
[2022-08-26] MEDS: CHOLECALCIFEROL 400 UNIT TAB PO SCH (09:07)
[2022-08-26] MEDS: NIFEDIPINE CR 30 MG TAB PO SCH (09:07)
[2022-08-26] MEDS: METOPROLOL SUCCINATE 25 MG TAB XL PO SCH (09:07)
[2022-08-26] MEDS ORDERED: DOCUSATE SODIU100 MG PO (10:16)
[2022-08-26] MEDS ORDERED: DEXAMETHASONE4 MG PO (10:16)
[2022-08-26] MEDS ORDERED: ASCORBIC ACID500 MG PO (10:16)
[2022-08-26] MEDS ORDERED: FERROUS SULFAT324 MG PO (10:16)
[2022-08-26 12:22] VITALS: BP 139/58
[2022-08-26] MEDS: REMDESIVIR 100MG 100 MG in SODIUM CHLORIDE 0.9% 100 ML IV SCH (12:30)
[2022-08-27] MEDS ORDERED: FUROSEMIDE 40 MG TAB PO SCH (09:00)
== END 2022-08-26 18:22 | disposition home health service (06) | DRG 177 ==
LOC: ER 13:00 → ERHOLD 17:29 → MED/SURG3 20:18
PROVIDERS: ADMIT Internal Medicine; ATTEND Internal Medicine
PROC: 8E0ZXY6 Isolation (ICD-10-PCS; 2022-08-20)
PROC: 5A0935A Assistance with Respiratory Ventilation, Less than 24 Consecutive Hours, High Flow/Velocity Cannula (ICD-10-PCS; principal; 2022-08-23)
DX: U07.1 COVID-19 (principal); G93.41 Metabolic encephalopathy; J69.0 Pneumonitis due to inhalation of food and vomit; I50.33 Acute on chronic diastolic (congestive) heart failure; J96.00 Acute respiratory failure, unspecified whether with hypoxia or hypercapnia; I13.0 Hypertensive heart and chronic kidney disease with heart failure and stage 1 through stage 4 chronic kidney disease, or unspecified chronic kidney disease; N17.9 Acute kidney failure, unspecified; N18.30 Chronic kidney disease, stage 3 unspecified; J43.9 Emphysema, unspecified; J84.10 Pulmonary fibrosis, unspecified; R91.1 Solitary pulmonary nodule; I48.0 Paroxysmal atrial fibrillation; Z79.01 Long term (current) use of anticoagulants; K44.9 Diaphragmatic hernia without obstruction or gangrene; H91.90 Unspecified hearing loss, unspecified ear; Z88.1 Allergy status to other antibiotic agents; Z88.8 Allergy status to other drugs, medicaments and biological substances
CPT/HCPCS: 36415; 71045; 71250; 80048; 80053; 81001; 82550; 82553; 83735; 83880; 84100; 84484; 85025; 85379; 87400; 93005; 93306; 94640; 94799; 99251; 99284; J0248; J0360; J0456; J0692; J1940; J1956; J7050